=== PATIENT | female | born 1960 | race Caucasian/White ===

== ENCOUNTER 2023-02-18 05:23 | Inpatient (IN) | payer OTHER ==
[2023-02-18] MEDS ORDERED: HEPARIN SODIUM 1,000 UN/ML (10ML VL) IV ONE (06:06)
[2023-02-18] MEDS ORDERED: HEPARIN SODIUM 1,000 UN/ML (10ML VL) IV PRN (06:06)
[2023-02-18] MEDS ORDERED: HEPARIN SOD,PORK IN 0.45% NACL 25,000 UNIT in 0.45% NACL 1 250ML.BAG IV SCH (06:15)
--- NOTE | 2023-02-18 06:21 | ED ---
Chest Pain HPI - General Chief Complaint: Chest Pain Stated Complaint: N-Stemi Time Seen by Provider: 02/18/23 05:55 Source: patient, EMS, RN notes reviewed Mode of arrival: EMS Limitations: no limitations - History of Present Illness Initial Comments: This is a 62-year-old female who presents to the emergency department as a transfer from [facility] for an N-STEMI. She had centralized chest pressure, mild nausea, and shortness of breath beginning at about 8pm last evening, and went to the emergency department about 2 hours later. She had some radiation of pain into the back and no radiation of pain down the arm. She went to their emergency department about 3 weeks prior for similar symptoms, and was found to have a negative workup at that time. She has seen cardiology in the past, and states that she had a cardiac catheterization about 10 years ago and was told that everything was normal. She also had a chemical stress test about 4 years ago, which she states was also normal. She has a history of high blood pressure and is a smoker. However, she denies any personal cardiac history. She does have a substantial family cardiac history, states that her brother has 6 stents, some of which were placed before the age of 50, she has another brother with an aortic aneurysm, and her father had a triple bypass at the age of 48. She is currently on a Heparin drip and has nitropaste applied, and symptoms are well controlled at this time. MD Complaint: chest pain - Related Data Home Medications Medication Instructions Recorded Confirmed Cholecalciferol [Vitamin D3 (25 50 mcg PO DAILY 02/18/23 02/18/23 Mcg = 1000 Iu)] Cyanocobalamin (Vitamin B-12) 1,000 mcg PO DAILY 02/18/23 02/18/23 [Vitamin B-12] Fexofenadine HCl 180 mg PO DAILY 02/18/23 02/18/23 Lexapro (Unknown Strength) 1 dose PO DAILY 02/18/23 02/18/23 Multivitamins, Thera [Multivitamin 1 tab PO DAILY 02/18/23 02/18/23 (formulary)] Pantoprazole [Protonix] 40 mg PO DAILY 02/18/23 02/18/23 Wellbutrin (Unknown Strength) 1 dose PO BID 02/18/23 02/18/23 lisinopriL [Prinivil] 20 mg PO DAILY 02/18/23 02/18/23 Allergies Allergy/AdvReac Type Severity Reaction Status Date / Time Sulfa (Sulfonamide Allergy Rash/Hives Verified 02/18/23 12:39 Antibiotics) Review of Systems ROS Statement: Those systems with pertinent positive or pertinent negative responses have been documented in the HPI. ROS Other: All systems not noted in ROS Statement are negative. Past Medical History - Past Family History Mother Family Medical History: No Reported History Father Family Medical History: Coronary Artery Disease (CAD) Additional Family Medical History / Comment(s): triple bypass, esophageal cancer General Exam Limitations: no limitations General appearance: alert, in no apparent distress Head exam: Present: atraumatic, normocephalic, normal inspection Respiratory exam: Present: normal lung sounds bilaterally. Absent: respiratory distress, wheezes, rales, rhonchi, stridor Cardiovascular Exam: Present: regular rate, normal rhythm, normal heart sounds. Absent: systolic murmur, diastolic murmur, rubs, gallop, clicks Neurological exam: Present: alert, oriented X3, CN II-XII intact Psychiatric exam: Present: normal affect, normal mood Skin exam: Present: warm, dry, intact, normal color. Absent: rash Course Vital Signs 02/18/23 02/18/23 05:50 07:29 Temperature 97.7 F Pulse Rate 56 L 57 L Respiratory 18 18 Rate Blood Pressure 137/69 121/57 O2 Sat by Pulse 95 95 Oximetry Chest Pain MDM - MDM This is a 62-year-old female who presents to the emergency department for chest pain and a transfer for NSTEMI. Was pt. sent in by a medical professional or institution? @ -Transfer from [place] Did you speak to anyone other than the patient for history? @ -No Did you review nursing and triage notes? @ -Yes, and I agree, it is accurate with regards to the patient's symptoms. Were old charts reviewed? @ -Records sent with the patient from [place] demonstrating T-wave inversions in leads V1-V3 on her EKG. Her chest x-ray and blood work were all normal initially and symptoms had improved wtih Toradol, morphine, aspirin, and zofran. However, they did repeat a second troponin, which returned elevated at 0.16, and she was transferred here for NSTEMI. She was started on a heparin drip and nitropaste was applied before transfer. Differential Diagnosis? @ -Differential Chest Pain: Stable Angina, Unstable Angina, STEMI, NSTEMI Aortic Dissection, Pneumothorax, Musculoskeletal, Esophageal Spasm GERD, Cholecystitis, Pancreatitis, Zoster, this is not meant to be an all-inclusive list. EKG interpreted by me (3pts min.)? @ -EKG interpreted by me demonstrating the following: Sinus bradycardia. T- wave inversion in V1 and V2. Ventricular rate 51 bpm, CO interval 196 ms, QRS duration 130 milliseconds, QTC 441 ms. X-rays interpreted by me (1pt min.)? @ -Not obtained CT interpreted by me (1pt min.)? @ -Not obtained U/S interpreted by me (1pt. min.)? @ -Not obtained What testing was considered but not performed? (CT, X-rays, U/S, labs)? Why? @ -None What meds were considered but not given? Why? @ -None Did you discuss the management of the patient with other professionals? @ -Yes, Dr. Vela, who accepts the patient for admission. Did you reconcile home meds? @ -No Was smoking cessation discussed for >3mins.? @ -I discussed smoking cessation for greater than 3 minutes. The risk of smoking were discussed with the patient including but not limited to risks of cancer, stroke, coronary artery disease and COPD. Also discussed with patient were multiple methods of quitting smoking. Lastly we discussed the financial cost of smoking. Was critical care preformed (if so, how long)? @ -No Were there social determinants of health that impacted care today? How? (Homelessness, low income, unemployed, alcoholism, drug addiction, transportation, low edu. Level, literacy, decrease access to med. care, fdc, rehab)? @ -No Was there de-escalation of care discussed even if they declined? (Discuss DNR or withdrawal of care, Hospice)? @ -No What co-morbidities impacted this encounter? (DM, HTN, Smoking, COPD, CAD, Cancer, CVA, Hep., AIDS, mental health diagnosis, sleep apnea, morbid obesity)? @ -HTN, smoking Was patient admitted / discharged? @ -Admitted. Records sent with the patient from [place] were thoroughly reviewed, indicating a negative first troponin and elevated second troponin of 0.16, and she was transferred here for NSTEMI. Patient continued on heparin drip. Patient admitted to medicine for NSTEMI with cardiology consult. However, we did repeat lab work here, and troponin returned after admission and was found to be negative. Patient will still be admitted for further evaluation and cardiac consult given her symptoms and risk factors. Undiagnosed new problem with uncertain prognosis? @ -None Drug Therapy requiring intensive monitoring for toxicity (Heparin, Nitro, Insulin, Cardizem)? @ -None Were any procedures done? @ -None Diagnosis/symptom? @ -Chest pain Acute, or Chronic, or Acute on Chronic? @ -Acute Uncomplicated (without systemic symptoms) or Complicated (systemic symptoms)? @ -Complicated Side effects of treatment? @ -None Exacerbation, Progression, or Severe Exacerbation] @ -Not applicable Poses a threat to life or bodily function? @ -Yes This case was discussed in detail with the attending ED physician, Dr. Reed. Presentation, findings, and treatment plan discussed in detail as well. Disposition Clinical Impression: Nicotine dependence, Chest pain Disposition: ADMITTED IP TO THIS HOSP
[2023-02-18] MEDS ORDERED: NALOXONE 0.4 MG/ML 1 ML VIAL IV PRN (06:35)
[2023-02-18 06:36] LABS: Basophils % (A) 0 %; Eosinophils # (A) 0.2 k/uL (0-0.7); Eosinophils % (A) 2 %; HCT 42.5 % (34.0-46.0); HGB 14.5 gm/dL (11.4-16.0); Lymphocytes # (A) 2.3 k/uL (1.0-4.8); Lymphocytes % (A) 29 %; MCH 31.1 pg (25.0-35.0); MCHC 34.2 g/dL (31.0-37.0); Mean Platelet Volume 7.8; Monocytes # (A) 0.3 k/uL (0-1.0); Monocytes % (A) 4 %; Neutrophils # (A) 4.8 k/uL (1.3-7.7); Neutrophils % (A) 62 %; Platelet Count 202 k/uL (150-450); RBC 4.67 m/uL (3.80-5.40); RDW 13.4 % (11.5-15.5); WBC 7.8 k/uL (3.8-10.6)
[2023-02-18 06:44] LABS: Sodium 136 mmol/L (137-145)
[2023-02-18 06:45] LABS: ALT 12 U/L (4-34); AST 18 U/L (14-36); African American GFR (CKD) 85 (>60 ml/min/1.73 sqM); Albumin 3.9 g/dL (3.5-5.0); Alkaline Phosphatase 77 U/L (38-126); Anion Gap 8 mmol/L; Blood Urea Nitrogen 17 mg/dL (7-17); Carbon Dioxide 24 mmol/L (22-30); Chloride 104 mmol/L (98-107); Glucose 95 mg/dL (74-99); Magnesium 1.9 mg/dL (1.6-2.3); Non-African American GFR(CKD) 74 (>60 ml/min/1.73 sqM); Potassium 4.1 mmol/L (3.5-5.1); Total Bilirubin 0.5 mg/dL (0.2-1.3); Total Protein 6.6 g/dL (6.3-8.2)
[2023-02-18 07:15] LABS: Prothrombin Time 10.7 sec (10.0-12.5)
[2023-02-18 07:22] LABS: Partial Thromboplastin Time 117.1 sec (22.0-30.0)
--- NOTE | 2023-02-18 13:23 | P.CRDCN ---
History of Present Illness Consult date: 02/18/23 History of present illness: History of Present Illness: The patient is a 62-year-old female with a history of hypertension, chronic tobacco use who presented to [facility] with an episode of chest discomfort and she was subsequently transferred. She was scheduled to undergo a nuclear scan tomorrow and [place] and see a wheel borer. The discomfort occurred at rest, not associated with any radiation or other symptoms. The patient has underwent cardiac catheterization about 4 years ago that showed no evidence of obstructive disease according to her. Her cardiac catheterization was performed in [place] prior to gastric bypass and because of symptoms of dis comfort. In [place] her second troponin was minimally abnormal but it was normal upon arrival here. The patient is not very active physically, she has some dyspnea on exertion, wheezing, cough but no PND, orthopnea or peripheral edema. Medications: Wellbutrin, Lexapro, Prinivil Review of Systems: Respiratory: She has dyspnea on exertion, chronic tobacco use and chronic wheezing GI: No nausea or vomiting . No history of peptic ulcer disease. No recent GI bleed. She has a history of GERD : No hematuria or dysuria. Nervous System: No stroke or seizure. Physical Examination: 62-year-old female, alert and oriented no apparent distress, overweight ,Blood pressure 103/60, Heart rate 60 Head: Normocephalic. Eyes: Sclerae nonicteric. Neck: Good carotid upstroke, no bruit, no jugular venous distention. Lungs: Clear to auscultation. Heart: Regular rate and rhythm, S1-S2, no S3, no rub. No murmur. Abdomen: Soft nontender, positive bowel sounds no organomegaly. Extremities: No edema, intact distal pulses. Labs: Potassium 4.1, BUN 17 creatinine 0.84. Hemoglobin 14.5, troponin less than 0.012. EKG: Sinus mechanism, rate of 51 right bundle branch block and left axis deviation was left anterior fascicle block Impression: 1. Chest discomfort of unclear etiology, probable noncardiac 2. History of hypertension 3. History of chronic tobacco use 4. History of reflux Plan: 1. Stop IV heparin 2. Obtain an echocardiogram with Doppler 3. Proceed with a nuclear scan tomorrow 4. If there is any evidence of stress-induced ischemia then coronary angiography will be indicated 5. Thank you for this consult we will follow with you. Past Medical History Past Medical History: Hypertension History of Any Multi-Drug Resistant Organisms: None Reported Past Surgical History: Bariatric Surgery, Section, Orthopedic Surgery, Tonsillectomy Additional Past Surgical History / Comment(s): lump removed from neck Past Anesthesia/Blood Transfusion Reactions: No Reported Reaction Past Psychological History: Depression Smoking Status: Current every day smoker - Past Family History Mother Family Medical History: No Reported History Father Family Medical History: Coronary Artery Disease (CAD) Additional Family Medical History / Comment(s): triple bypass, esophageal cancer Medications and Allergies Home Medications Medication Instructions Recorded Confirmed Type Cholecalciferol [Vitamin D3 (25 50 mcg PO DAILY 02/18/23 02/18/23 History Mcg = 1000 Iu)] Cyanocobalamin (Vitamin B-12) 1,000 mcg PO DAILY 02/18/23 02/18/23 History [Vitamin B-12] Fexofenadine HCl 180 mg PO DAILY 02/18/23 02/18/23 History Lexapro (Unknown Strength) 1 dose PO DAILY 02/18/23 02/18/23 History Multivitamins, Thera [Multivitamin 1 tab PO DAILY 02/18/23 02/18/23 History (formulary)] Pantoprazole [Protonix] 40 mg PO DAILY 02/18/23 02/18/23 History Wellbutrin (Unknown Strength) 1 dose PO BID 02/18/23 02/18/23 History lisinopriL [Prinivil] 20 mg PO DAILY 02/18/23 02/18/23 History Allergies Allergy/AdvReac Type Severity Reaction Status Date / Time Sulfa (Sulfonamide Allergy Rash/Hives Verified 02/18/23 12:39 Antibiotics) Physical Exam Vitals: Vital Signs Temp Pulse Pulse Resp BP BP Pulse Ox 02/18/23 12:08 98.1 F 56 L 16 103/64 94 L 02/18/23 09:18 97.6 F 56 L 16 120/57 97 02/18/23 08:00 16 02/18/23 07:29 57 L 18 121/57 95 02/18/23 05:50 97.7 F 56 L 18 137/69 95 Intake and Output 02/17/23 02/18/23 02/18/23 22:59 06:59 14:59 Intake Total 0.5 Balance 0.5 Intake: Intake, IV Titration 0.5 Amount Heparin Sod,Pork in 0.45% 0.5 NaCl 25,000 unit In 0.45 % NaCl 1 250ml.bag @ 9.15 UNITS/KG/HR 10.001 mls/ hr IV .Q24H [facility] Rx#: [id number] Other: Voiding Method Toilet Weight 109.316 kg 109.316 kg Results 02/18/23 06:26 02/18/23 06:26 Cardiac Enzymes 02/18/23 02/18/23 Range/Units 06:26 06:26 AST 18 (14-36) U/L Troponin I <0.012 (0.000-0.034) ng/mL Coagulation 02/18/23 02/18/23 Range/Units 06:26 09:11 PT 10.7 (10.0-12.5) sec APTT 117.1 H* 54.6 H (22.0-30.0) sec CBC 02/18/23 Range/Units 06:26 WBC 7.8 (3.8-10.6) k/uL RBC 4.67 (3.80-5.40) m/uL Hgb 14.5 (11.4-16.0) gm/dL Hct 42.5 (34.0-46.0) % Plt Count 202 (150-450) k/uL Comprehensive Metabolic Panel 02/18/23 Range/Units 06:26 Sodium 136 L (137-145) mmol/L Potassium 4.1 (3.5-5.1) mmol/L Chloride 104 (98-107) mmol/L Carbon Dioxide 24 (22-30) mmol/L BUN 17 (7-17) mg/dL Creatinine 0.84 (0.52-1.04) mg/dL Glucose 95 (74-99) mg/dL Calcium 9.0 (8.4-10.2) mg/dL AST 18 (14-36) U/L ALT 12 (4-34) U/L Alkaline Phosphatase 77 (38-126) U/L Total Protein 6.6 (6.3-8.2) g/dL Albumin 3.9 (3.5-5.0) g/dL Current Medications Generic Name Dose Route Start Last Admin Trade Name Freq PRN Reason Stop Dose Admin Acetaminophen 650 mg 02/18/23 06:35 Acetaminophen Tab 325 Mg Tab PO Q6HR PRN Mild Pain or Fever > 100.5 Hydrocodone Bitart/Acetaminophen 1 each 02/18/23 06:35 Hydrocodone/Apap 5-325mg 1 Each Tab PO Q4HR PRN Moderate Pain (Scale 4 to 6) Morphine Sulfate 4 mg 02/18/23 06:35 Morphine Sulfate 4 Mg/Ml Syringe IV Q4HR PRN Severe Pain (Scale 7 to 10) Naloxone HCl 0.2 mg 02/18/23 06:35 Naloxone 0.4 Mg/Ml 1 Ml Vial IV Q2M PRN Opioid Reversal Ondansetron HCl 4 mg 02/18/23 06:35 Ondansetron 4 Mg/2 Ml Vial IVP Q8HR PRN Nausea And Vomiting Intake and Output 02/17/23 02/18/23 02/18/23 22:59 06:59 14:59 Intake Total 0.5 Balance 0.5 Intake: Intake, IV Titration 0.5 Amount Heparin Sod,Pork in 0.45% 0.5 NaCl 25,000 unit In 0.45 % NaCl 1 250ml.bag @ 9.15 UNITS/KG/HR 10.001 mls/ hr IV .Q24H [facility] Rx#: [id number] Other: Voiding Method Toilet Weight 109.316 kg 109.316 kg Patient Weight 02/19/23 06:59 Weight 109.316 kg 02/18/23 06:26 02/18/23 06:26
--- NOTE | 2023-02-18 13:52 | P.HPIM ---
History of Present Illness H&P Date: 02/18/23 Patient is a 62-year-old female with history of nicotine dependence, hypertension, depression, GERD presenting with chest pain. Chest pain started yesterday evening, left-sided while she was resting. It lasted for a few hours. Associated with nausea and shortness of breath. Denies any palpitations. Had similar chest pain in the past, cardiac cath 10 years ago was negative, stress test years ago was also negative. She was at outside facility, initial troponin was negative, and that had slight elevation in troponin, was started on heparin drip and transferred over to our facility. Currently she is chest pain-free, denies any shortness of breath, abdominal pain, nausea, vomiting, urinary or bowel complaints. Patient smokes half pack a day. Denies any alcohol use, uses marijuana occasionally. In the ED, temperature was 97.7, pulse 56, respiratory rate 18, blood pressure 137/69, saturating at 95% on room air. CBC and BMP within normal limits. Troponin negative. APTT 54.6. EKG shows normal sinus rhythm with right bundle branch block, poor R-wave progression. Chest x-ray outside did not show any acute process. Cardiology consulted. Patient admitted for possible NSTEMI. Pertinent positives and negatives as discussed in HPI, a complete review of systems was performed and all other systems are negative. Patient seen and examined at bedside. Vital signs reviewed General: nontoxic, no distress, appears at stated age, morbidly obese Derm: warm, dry Head: atraumatic, normocephalic, symmetric Eyes: EOMI, no lid lag, anicteric sclera, pupils equal round reactive to light ENT: Nose and ears atraumatic Neck: No thyromegaly, supple Mouth: no lip lesion, mucus membranes moist Cardiovascular: S1S2 reg, no murmur, no edema Lungs: clear to auscultation bilateral, no rhonchi, no rales, no wheeze, no accessory muscle use Abdominal: soft, nontender to palpation, no guarding, no appreciable organomegaly Ext: no gross muscle atrophy, muscle strength muscle strength 5 out of 5 in all 4 extremities, no contractures Neuro: CN II-XII grossly intact Psych: Alert, oriented, appropriate affect Assessment/Plan: NSTEMI -Cardiology consulted -On IV heparin, monitor APTT, daily CBC, monitor for any bleeding -Aspirin 81 mg -Lipid panel, TSH, A1c -Consider statin -Continue telemetry Hypertension -Restarted home lisinopril 20 mg Nicotine dependence -Counseled regarding smoking cessation -Continue Wellbutrin Depression -Continue Lexapro GERD -Continue pantoprazole 40 mg The patient is admitted with an anticipated greater than 2 midnight stay as inpatient status for evaluation of NSTEMI. Surrogate decision-maker: Family CODE STATUS: Full code DVT prophylaxis: Heparin Anticipated discharge date: Pending clinical course Anticipated discharge place: Pending clinical course A total of 55inutes was spent on the care of this complex patient more than 50% of the time was spent in counseling and care coordination. Past Medical History Past Medical History: Hypertension History of Any Multi-Drug Resistant Organisms: None Reported Past Surgical History: Bariatric Surgery, Section, Orthopedic Surgery, Tonsillectomy Additional Past Surgical History / Comment(s): lump removed from neck Past Anesthesia/Blood Transfusion Reactions: No Reported Reaction Past Psychological History: Depression Smoking Status: Current every day smoker - Past Family History Mother Family Medical History: No Reported History Father Family Medical History: Coronary Artery Disease (CAD) Additional Family Medical History / Comment(s): triple bypass, esophageal cancer Medications and Allergies Home Medications Medication Instructions Recorded Confirmed Type Cholecalciferol [Vitamin D3 (25 50 mcg PO DAILY 02/18/23 02/18/23 History Mcg = 1000 Iu)] Cyanocobalamin (Vitamin B-12) 1,000 mcg PO DAILY 02/18/23 02/18/23 History [Vitamin B-12] Fexofenadine HCl 180 mg PO DAILY 02/18/23 02/18/23 History Lexapro (Unknown Strength) 1 dose PO DAILY 02/18/23 02/18/23 History Multivitamins, Thera [Multivitamin 1 tab PO DAILY 02/18/23 02/18/23 History (formulary)] Pantoprazole [Protonix] 40 mg PO DAILY 02/18/23 02/18/23 History Wellbutrin (Unknown Strength) 1 dose PO BID 02/18/23 02/18/23 History lisinopriL [Prinivil] 20 mg PO DAILY 02/18/23 02/18/23 History Allergies Allergy/AdvReac Type Severity Reaction Status Date / Time Sulfa (Sulfonamide Allergy Rash/Hives Verified 02/18/23 12:39 Antibiotics) Physical Exam Vitals: Vital Signs Temp Pulse Pulse Resp BP BP Pulse Ox 02/18/23 12:08 98.1 F 56 L 16 103/64 94 L 02/18/23 09:18 97.6 F 56 L 16 120/57 97 02/18/23 08:00 16 02/18/23 07:29 57 L 18 121/57 95 02/18/23 05:50 97.7 F 56 L 18 137/69 95 Intake and Output 02/17/23 02/18/23 02/18/23 22:59 06:59 14:59 Intake Total 0.5 Balance 0.5 Intake: Intake, IV Titration 0.5 Amount Heparin Sod,Pork in 0.45% 0.5 NaCl 25,000 unit In 0.45 % NaCl 1 250ml.bag @ 9.15 UNITS/KG/HR 10.001 mls/ hr IV .Q24H [facility] Rx#: [id number] Other: Voiding Method Toilet Weight 109.316 kg 109.316 kg Results CBC & Chem 7: 02/18/23 06:26 02/18/23 06:26 Labs: Abnormal Lab Results - Last 24 Hours (Table) 02/18/23 02/18/23 02/18/23 Range/Units 06:26 06:26 09:11 APTT 117.1 H* 54.6 H (22.0-30.0) sec Sodium 136 L (137-145) mmol/L Thrombosis Risk Factor Assmnt - Choose All That Apply Each Factor Represents 1 point: Obesity (BMI >25) Each Risk Factor Represents 2 Points: Age 61-74 years Thrombosis Risk Factor Assessment Total Risk Factor Score: 3 Thrombosis Risk Factor Assessment Level: Moderate Risk
[2023-02-18] MEDS: ASPIRIN 81 MG PO SCH (15:35)
[2023-02-18] MEDS: HEPARIN SODIUM,PORCINE 5,000 UNIT/ML 1 ML VIAL SQ SCH (15:35)
[2023-02-18] MEDS: ACETAMINOPHEN TAB 325 MG TAB PO PRN (17:59)
[2023-02-18] MEDS ORDERED: WELLBUTRIN PO SCH (21:00)
[2023-02-18] MEDS: MORPHINE SULFATE 4 MG/ML SYRINGE IV PRN (23:36)
[2023-02-19 00:21] LABS: Chol/HDL Ratio 3.56 Ratio; LDL Cholesterol,Calculated 127.9 mg/dL (0.0-131.0)
[2023-02-19] MEDS: HEPARIN SODIUM,PORCINE 5,000 UNIT/ML 1 ML VIAL SQ SCH ×3 (01:17→16:54)
[2023-02-19] MEDS ORDERED: AMINOPHYLLINE 500 MG/20 ML VIAL IV PRN (06:00)
[2023-02-19] MEDS ORDERED: CAFFEINE CITRATE 60 MG/3 ML VIAL IV PRN (06:00)
[2023-02-19] MEDS: PANTOPRAZOLE 40 MG TABLET PO SCH (06:47)
[2023-02-19] MEDS ORDERED: REGADENOSON 0.4 MG/5 ML SYRINGE IV PRN (07:00)
[2023-02-19 07:33] LABS: Basophils % (A) 1 %; Eosinophils # (A) 0.3 k/uL (0-0.7); Eosinophils % (A) 5 %; HCT 42.8 % (34.0-46.0); HGB 14.3 gm/dL (11.4-16.0); Lymphocytes # (A) 1.8 k/uL (1.0-4.8); Lymphocytes % (A) 36 %; MCHC 33.3 g/dL (31.0-37.0); MCV 93.2 fL (80.0-100.0); Mean Platelet Volume 8.3; Monocytes # (A) 0.3 k/uL (0-1.0); Monocytes % (A) 6 %; Neutrophils # (A) 2.5 k/uL (1.3-7.7); Neutrophils % (A) 49 %; Platelet Count 182 k/uL (150-450); RDW 13.9 % (11.5-15.5); WBC 5.1 k/uL (3.8-10.6)
[2023-02-19 07:47] LABS: African American GFR (CKD) 71 (>60 ml/min/1.73 sqM); Anion Gap 8 mmol/L; Blood Urea Nitrogen 16 mg/dL (7-17); Calcium 9.3 mg/dL (8.4-10.2); Carbon Dioxide 29 mmol/L (22-30); Chloride 103 mmol/L (98-107); Glucose 88 mg/dL (74-99); Non-African American GFR(CKD) 61 (>60 ml/min/1.73 sqM); Potassium 4.8 mmol/L (3.5-5.1); Sodium 140 mmol/L (137-145)
[2023-02-19] MEDS ORDERED: LEXAPRO PO SCH (09:00)
[2023-02-19] MEDS: LIDOCAINE 4% PATCH TOPICAL SCH (11:30)
--- NOTE | 2023-02-19 12:32 | NM ---
EXAMINATION TYPE: NM stress lexiscan cardiolite DATE OF EXAM: 02/19/2023 COMPARISON: NONE CLINICAL INDICATION: Female, 62 years old with history of chest pain; TECHNIQUE: After the intravenous administration of 10.5 mCi Tc 99m Sestamibi - Cardiolite resting SP ECT images acquired 75 minutes post injection. The patient received 0.4mg Lexiscan, 26.4 mCi Tc 99m Sestamibi - Stress images obtained [address] injection FINDINGS: Review of stress and rest SPECT images demonstrates a large area of reversibility along the inferolat eral wall. Perfusion defect along the septal and anteroseptal wall is much more pronounced on rest conley ggesting attenuation artifact. Gated analysis shows incomplete augmentation of the inferolateral wall . Estimated left ventricular ejection fraction of 73 %. TID is calculated normal at 0.89. IMPRESSION: Scintigraphic findings demonstrating a large area of reversibility along the inferolatera l wall. Correlate with EKG findings and further workup as clinically indicated.
[2023-02-19] MEDS: lisinopriL 20 MG TAB PO SCH (12:48)
[2023-02-19] MEDS: ASPIRIN 81 MG PO SCH (12:48)
--- NOTE | 2023-02-19 13:33 | CA ---
Lexiscan Nuclear Stress Test Report Name: Nancy Soto Exam Date: 02/19/2023 09:34 Exam Location: [facility] Stress Ht (in): 67 Wt (lb): 240 BSA: 2.18 Ordering Phys: Danilo Jaquez MD Referring Phys: MENDEL, Technologist: PADMINI,, Age: 62 Gender: F : 1960 Procedure CPT: Indications: Reflex order-Stress test ICD-10 Codes: Patient History: Chest pain. Shortness of breath Medications: Meds past 24 hrs: Pretest Chest Pain: STRESS TEST Lexiscan Protocol Exercise Duration (min:sec): 02:[address] Depressions (mm): Angina Score: Agee Score: Resting HR (bpm): 55 Peak HR (bpm): 113 Resting BP (mmHg): 142 / 72 Peak BP (mmHg): 229 / 102 MPHR: 156 Target HR: 133 % MPHR: 72 METS: 1.0 Total Dose: Peak Dose: Atropine: Double Product: 62931 BP Response: Stress Termination: Infusion complete Stress Symptoms: Nausea Stress Summary: ECG ANALYSIS Resting ECG: Normal sinus rhythm, right bundle branch block, heart rate 54, premature ventricular contraction Stress ECG: No significant ST-T wave changes diagnostic for ischemia by ST segment analysis. There were no sustained arrhythmias ectopic beats CONCLUSIONS Nonischemic ECG response to Lexiscan infusion Hypertensive response to Lexiscan infusion Overall normal ECG competent of Lexiscan stress test. Please refer to the nuclear portion of imaging for the complete interpretation of this study Dr Amador Solitario (Electronically Signed) Final Date: 19 February 2023 13:32
--- NOTE | 2023-02-19 13:36 | CA ---
Transthoracic Echo Report Name: Nancy Soto Age: 62 Gender: F : 1960 Exam Date: 02/19/2023 09:13 Exam Location: [facility] Ht (in): 67 Wt (lb): 240 Ordering Physician: Danilo Jaquez MD ([id number]) Attending/Referring Phys: Census Taker Negin Lee RDCS Procedure CPT: Indications: CP Cardiac Hx: Technical Quality: Fair Contrast 1: Total Dose (mL): Contrast 2: Total Dose (mL): MEASUREMENTS (Male / Female) Normal Values 2D ECHO LV Diastolic Diameter PLAX 4.0 cm 4.2 - 5.9 / 3.9 - 5.3 cm LV Systolic Diameter PLAX 2.2 cm IVS Diastolic Thickness 1.5 cm 0.6 - 1.0 / 0.6 - 0.9 cm LVPW Diastolic Thickness 1.4 cm 0.6 - 1.0 / 0.6 - 0.9 cm LV Relative Wall Thickness 0.7 RV Internal Dim ED PLAX 3.4 cm LA Volume 62.2 cm??? 18 - 58 / 22 - 52 cm??? LA Volume Index 26.9 cm???/m??? 16 - 28 cm???/m??? M-MODE Aortic Root Diameter MM 3.2 cm LA Systolic Diameter MM 5.1 cm LA Ao Ratio MM 1.6 AV Cusp Separation MM 1.8 cm DOPPLER AV Peak Velocity 146.8 cm/s AV Peak Gradient 8.6 mmHg AV Mean Velocity 97.5 cm/s AV Mean Gradient 4.3 mmHg AV Velocity Time Integral 33.8 cm LVOT Peak Velocity 118.7 cm/s LVOT Peak Gradient 5.6 mmHg LVOT Velocity Time Integral 28.6 cm MV Area PHT 2.9 cm??? Mitral E Point Velocity 90.9 cm/s Mitral A Point Velocity 116.5 cm/s Mitral E to A Ratio 0.8 MV Deceleration Time 259.5 ms MV E' Velocity 7.3 cm/s Mitral E to MV E' Ratio 12.4 TR Peak Velocity 189.1 cm/s TR Peak Gradient 14.3 mmHg Right Ventricular Systolic Press 19.3 mmHg FINDINGS Left Ventricle Moderately increased left ventricular wall thickness. Left ventricular cavity size normal. Normal left ventricular systolic function with no obvious regional wall motion abnormalities. Left ventricular ejection fraction is estimated at 55-60%. Right Ventricle Normal right ventricular size. Right ventricular systolic pressure within normal limits. Right Atrium Normal right atrial size. Left Atrium Mildly increased left atrial volume. Mildly increased left atrial area. Mitral Valve Structurally normal mitral valve. Mild mitral annular calcification. Trace mitral regurgitation. Aortic Valve Trileaflet aortic valve. No aortic valve stenosis or regurgitation. Aortic valve sclerosis. Tricuspid Valve Structurally normal tricuspid valve. Mild tricuspid regurgitation. Pulmonic Valve Structurally normal pulmonic valve. Pericardium No pericardial effusion. Aorta Normal size aortic root and proximal ascending aorta. CONCLUSIONS Left ventricular ejection fraction is estimated at 55-60%. No obvious regional wall motion abnormalities. Aortic valve sclerosis with no stenosis No other significant valvular dysfunction RVSP estimated less than 25 mmHg No pericardial effusion Previewed by: Dr Amador Solitario (Electronically Signed) Final Date: 19 February 2023 13:35
[2023-02-19] MEDS ORDERED: NITROGLYCERIN SL TABS 0.4 MG TAB SUBLINGUAL PRN (13:59)
[2023-02-19] MEDS ORDERED: ALPRAZolam 0.5 MG TAB PO PRN (13:59)
[2023-02-19] MEDS ORDERED: ALPRAZolam 0.25 MG TAB PO PRN (13:59)
--- NOTE | 2023-02-19 14:16 | P.PN ---
Subjective HISTORY OF PRESENT ILLNESS: The patient is a 62-year-old female with a history of hypertension, chronic tobacco use who presented to [facility] with an episode of chest discomfort and she was subsequently transferred. 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 The discomfort occurred at rest, not associated with any radiation or other symptoms. The patient has underwent cardiac catheterization about 4 years ago that showed no evidence of obstructive disease according to her. Her cardiac catheterization was performed in [place] prior to gastric bypass and because of symptoms of discomfort. In [place] her second troponin was minimally abnormal but it was normal upon arrival here. The patient is not very active physically, she has some dyspnea on exertion, wheezing, cough but no PND, orthopnea or peripheral edema. Medications: Wellbutrin, Lexapro, Prinivil 02/19/2023 Patient examined this morning at the bedside. Patient currently denies chest pain or pressure. She denies shortness of breath. Vital signs are stable. Lexiscan stress test completed today reveals large area of reversibility along inferior lateral wall. Echocardiogram completed revealing ejection fraction 55- 60% with no obvious regional wall motion abnormalities, trace MR, mild TR. PHYSICAL EXAM: VITAL SIGNS: Reviewed. GENERAL: Well-developed in no acute distress. NECK: Supple. No JVD or thyromegaly LUNGS: Respirations even and unlabored. Lungs essentially clear to auscultation bilaterally. HEART: Regular rate and rhythm. S1 and S2 heard. EXTREMITIES: Normal range of motion. No clubbing or cyanosis. Peripheral pulses intact. No lower extremity edema ASSESSMENT: 1. Chest discomfort, status post Lexiscan stress test revealing large area of reversibility along inferior lateral wall 2. History of hypertension 3. History of chronic tobacco use 4. History of reflux PLAN: Continue current cardiac medications Add atorvastatin 40 mg at night Nothing by mouth at midnight Patient to undergo cardiac catheterization tomorrow with Dr. Jaquez Further recommendations pending patient's course Nurse practitioner note has been reviewed by physician. Signing provider agrees with the documented findings, assessment, and plan of care. Objective - Vital Signs Vital signs: Vital Signs Temp 97.2 F L 02/19/23 04:22 Pulse 56 L 02/19/23 04:22 Resp 16 02/19/23 04:22 BP 131/61 02/19/23 04:22 Pulse Ox 96 02/19/23 04:22 FiO2 Intake & Output 02/18/23 02/19/23 02/19/23 18:59 06:59 18:59 Intake Total 720.5 Balance 720.5 Weight 109.316 kg Intake: Intake, IV Titration 0.5 Amount Heparin Sod,Pork in 0.45% 0.5 NaCl 25,000 unit In 0.45 % NaCl 1 250ml.bag @ 9.15 UNITS/KG/HR 10.001 mls/ hr IV .Q24H [facility] Rx#: [id number] Oral 720 Other: Voiding Method Toilet Toilet # Voids 3 1 - Labs CBC & Chem 7: 02/19/23 07:11 02/19/23 07:11 Labs: Abnormal Lab Results - Last 24 Hours (Table) 02/18/23 02/18/23 Range/Units 06:26 09:11 APTT 54.6 H (22.0-30.0) sec Cholesterol 207.00 H (0.00-200.00) mg/dL
--- NOTE | 2023-02-19 16:20 | P.PN ---
Subjective Progress Note Date: 02/19/23 Hospital course: Patient is a very pleasant 62-year-old female with a past medical history of hypertension, anxiety and depression, GERD, and nicotine dependence. She presented to the emergency department on 02/18/23 secondary to complaints of chest pain. She was initially seen at [facility] and transferred to our facility for elevated troponin after being started on aspirin, Nitropaste, and a heparin infusion for treatment of NSTEMI. Upon arrival to facility, she underw ent full evaluation in the emergency department. Vital signs upon arrival temperature was 97.7F, heart rate 56, respiratory rate 18, blood pressure 137/69, with SpO2 of 95% on room air. Labs completed and reviewed. CBC and BMP unremarkable. Troponin negative at less than 0.012. PTT 54.6. EKG revealed sinus bradycardia at 51 bpm with a right bundle-branch block. Repeat EKG completed this morning revealing sinus bradycardia at 52 bpm with a right bundle branch block. Chest x-ray completed at previous facility was negative for acute cardiopulmonary process. Patient was admitted under our services of consultation cardiology. Lipid profile showing elevated total cholesterol 207 otherwise normal findings. Echocardiogram completed showing a preserved EF of 55-60%. Cardiology following and took patient for cardiac stress test. Stress test showing nonischemic EKG response to Lexiscan infusion, hypertensive response to Lexiscan infusion, and overall normal EKG component of Lexiscan stress test. Lexiscan stress test showing scintigraphic findings demonstrating a large area of reversibility along the inferiolateral wall Physical exam: Vital signs reviewed and stable. General: Nontoxic, no distress and appears stated age. Derm: Skin warm and dry, normal coloration for ethnicity. Head: Atraumatic, normocephalic and symmetric. Eyes: EOMs intact, no lid lag, and anicteric sclera Mouth: no lip lesions, mucus membranes moist Cardiovascular: regular rate and rhythm with normal S1S2, no murmur, positive posterior tibial pulses bilaterally, and cap refill < 2 seconds. Lungs: Respirations even, regular, and unlabored on room air. Lungs CTA bilaterally, no rhonchi, no rales, no wheezing, and no accessory muscle usage. Abdominal: soft, nontender to palpation, no guarding, no appreciable organomegaly Ext: ROM intact. No gross muscle atrophy, no edema, no contractures Neuro: Speech clear, face symmetrical and CN II-XII grossly intact with no noted focal neuro deficits Psych: Alert and oriented to person, place, time, and situation. Appropriate and pleasant affect. Assessment and Plan of Care: NSTEMI Hypertension Nicotine dependence GERD Anxiety and depression -Cardiology following and took patient for cardiac stress test today. -Telemetry monitoring -Continuation of low intensity heparin infusion. Most recent PTT 54.6 was therapeutic. Continue close monitoring of PTT prickle of therapeutic range of 44-79 seconds. -Cardiac diet -Continue Aspirin 81 mg daily and lisinopril 20 mg daily. -Lipid profile showing elevated total cholesterol 207 otherwise normal findings. -Echocardiogram completed showing a preserved EF of 55-60%. -Stress test showing nonischemic EKG response to Lexiscan infusion, hypertensive response to Lexiscan infusion, and overall normal EKG component of Lexiscan stress test. Lexiscan stress test showing scintigraphic findings demonstrating a large area of reversibility along the inferiolateral wall Data and imaging reviewed: -Vital signs reviewed. Blood pressure 137/76, heart rate 47, respiratory rate 20, temp 97.9F, SpO2 is 94% on room air. -Lipid profile showing elevated total cholesterol 207 otherwise normal findings. -Echocardiogram completed showing a preserved EF of 55-60%. -Stress test showing nonischemic EKG response to Lexiscan infusion, hypertensive response to Lexiscan infusion, and overall normal EKG component of Lexiscan stress test. -Lexiscan stress test showing scintigraphic findings demonstrating a large area of reversibility along the inferiolateral wall CODE STATUS: Full code DVT prophylaxis: Heparin Anticipated discharge date: Clinical course to determine Anticipated discharge place: Clinical course to determine Patient was seen independently by Nurse Pracitioner. This document was prepared using u[employer] dictation software. Please allow for errors in telephone sex worker, while rare they do occur. I reviewed the documentation as provided by the ANNIKA above, who is the original author of this note. I agree with the documented assessment and plan, with the following changes: none Objective - Vital Signs Vital signs: Vital Signs Temp 97.2 F L 02/19/23 04:22 Pulse 56 L 02/19/23 04:22 Resp 16 02/19/23 04:22 BP 131/61 02/19/23 04:22 Pulse Ox 96 02/19/23 04:22 FiO2 Intake & Output 02/18/23 02/19/23 02/19/23 18:59 06:59 18:59 Intake Total 720.5 Balance 720.5 Weight 109.316 kg Intake: Intake, IV Titration 0.5 Amount Heparin Sod,Pork in 0.45% 0.5 NaCl 25,000 unit In 0.45 % NaCl 1 250ml.bag @ 9.15 UNITS/KG/HR 10.001 mls/ hr IV .Q24H [facility] Rx#: [id number] Oral 720 Other: Voiding Method Toilet Toilet # Voids 3 1 - Labs CBC & Chem 7: 02/19/23 07:11 02/19/23 07:11 Labs: Abnormal Lab Results - Last 24 Hours (Table) 02/18/23 02/18/23 Range/Units 06:26 09:11 APTT 54.6 H (22.0-30.0) sec Cholesterol 207.00 H (0.00-200.00) mg/dL
[2023-02-19] MEDS: ATORVASTATIN 40 MG TAB PO SCH (22:00)
[2023-02-19] MEDS: HYDROcodone/APAP 5-325MG 1 EACH TAB PO PRN (22:00)
[2023-02-19] MEDS: SODIUM CHLORIDE 0.9% 1,000 ML in EMPTY BAG 1 BAG IV SCH (23:00)
[2023-02-20] MEDS: HEPARIN SODIUM,PORCINE 5,000 UNIT/ML 1 ML VIAL SQ SCH ×4 (00:25→23:44)
[2023-02-20] MEDS: ONDANSETRON 4 MG/2 ML VIAL IVP PRN ×2 (00:26→17:17)
[2023-02-20] MEDS: ASPIRIN 81 MG PO SCH (04:48)
[2023-02-20] MEDS ORDERED: ASPIRIN 325 MG TAB PO ONE (05:00)
[2023-02-20] MEDS ORDERED: ATORVASTATIN 80 MG TAB PO ONE (05:00)
[2023-02-20] MEDS: PANTOPRAZOLE 40 MG TABLET PO SCH (05:07)
[2023-02-20] MEDS: lisinopriL 20 MG TAB PO SCH (05:07)
[2023-02-20] MEDS: LIDOCAINE 4% PATCH TOPICAL SCH (05:08)
[2023-02-20] MEDS ORDERED: HEPARIN SODIUM,PORCINE (1 ML) 2,500 UNIT in SODIUM CHLORIDE 0.9% 250 ML IRRIGATION PRN (07:00)
[2023-02-20] MEDS ORDERED: HEPARIN SODIUM,PORCINE 10,000 UNIT in SODIUM CHLORIDE 0.9% 1,000 ML IRRIGATION PRN (07:00)
[2023-02-20] MEDS ORDERED: IV FLUID CONTINUATION 1,000 ML IV ONE (07:25)
[2023-02-20] MEDS ORDERED: MIDAZOLAM 2 MG/2 ML VIAL IVP ONE (07:49)
[2023-02-20] MEDS ORDERED: fentaNYL (PF) 50 MCG/ML 2 ML AMP IVP ONE (07:51)
[2023-02-20] MEDS ORDERED: LIDOCAINE 1% INJ 10MG/ML (20 ML MDV) SQ ONE (07:54)
[2023-02-20] MEDS ORDERED: VERAPAMIL SYRINGE (5 MG/10 ML) INTRAARTER ONE (07:56)
[2023-02-20] MEDS ORDERED: CLOPIDOGREL 75 MG TAB PO ONE (08:12)
[2023-02-20] MEDS ORDERED: IOPAMIDOL-370 100ML BTL INJ ONE ×2 (08:20→08:30)
[2023-02-20] MEDS ORDERED: SODIUM CHLORIDE 0.9% 1,000 ML IV ONE (08:39)
[2023-02-20] MEDS ORDERED: MAG HYDROX/AL HYDROX/SIMETH 30 ML CUP PO PRN (08:48)
[2023-02-20] MEDS ORDERED: ATROPINE SULFATE 0.1 MG/ML 10ML SYRINGE IV PRN (08:48)
[2023-02-20] MEDS ORDERED: NITROGLYCERIN SL TABS 0.4 MG TAB SUBLINGUAL PRN (08:48)
[2023-02-20] MEDS ORDERED: RX INFO: IV CONTRAST WAS GIVEN 1 EACH MISC MISCELLANE PRN (08:48)
[2023-02-20] MEDS ORDERED: ZOLPIDEM 5 MG TAB PO PRN (08:48)
--- NOTE | 2023-02-20 08:56 | P.CARDCATH ---
Date of Procedure: 02/20/23 Description of Procedure: Cardiac Catheterization: The patient is a 62-year-old female with history of chronic tobacco use, hypertension who presented with symptoms of chest discomfort and had an abnormal MPI. Recommendations were made regarding cardiac catheterization, the risks and the complications were discussed with the patient who is in full understanding and agreement. Procedure Description: Patient was brought to center medical and lab director in fasting semi-sedated state after receiving Fentanyl and Benadryl achieiving moderate conscious sedated state. Using Xylocaine Anesthesia and modified Seldinger technique, a 6-Hong Konger sheath was introduced in the right radial artery . Subsequently, selective coronary angiography was performed using a 5-Hong Konger 3.5 bend Nilay catheter. Multiple views of the coronary artery including hemiaxial views were obtained. The 6-H[place] Konger pigtail catheter was used to cross the aortic valve and LVEDP was calculated. PCI: After removing the catheters 6-H[place] Konger EBU 3.75 guiding catheter was introduced and after cannulating the left main a 0.014 BMW J-wire with a super cross c atheter were introduced in the left circumflex. Attempted has to wire across the chronic occlusion were unsuccessful, the wire was exchanged to a 0.014 whisper J-wire that was unsuccessful in crossing the lesion. Because of the dye load the decision was made to stop at that point. Following that, catheter and sheath were removed. Hemostasis was obtained with deployment of vascular band . There was no immediate complication. Patient was returned to room in stable condition. Of note, the patient received a total of 7000 units of intravenous heparin as well as intra-arterial verapamil. She received an oral loading dose of clopidogrel. She had no chest discomfort or EKG changes Findings: Left main: This is a large size vessel bifurcating into left circumflex and LAD, left main has no obstructive disease LAD: This is a moderately sized vessel, giving rise to a large diagonal branch. The LAD after the takeoff of the diagonal branch has a 30-40% plaque the rest of the vessel has no high-grade stenosis Left circumflex: This is a nondominant vessel giving rise to 2 obtuse marginal branch, the first one is very proximal. The second one is chronically occluded at the takeoff with retrograde filling through the LAD. RCA: This is an dominant vessel, large in caliber bifurcating distally into PDA and PLV. The proximal RCA has a 40-50% plaque proximally, the rest of the vessel has no high-grade stenosis Left Ventriculogram: Not performed Hemodynamics: There was no gradient across the aortic valve, LVEDP was 20-22 mmHg Conclusion: 1. Chronically occluded OM 2 2. 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 Mild disease in the mid LAD 4. And successful recanalization of the chronically occluded OM 2 Recommendations: The patient will continue on maximum medical therapy and if she has recurrent symptoms then I would recommend to proceed with attempted angioplasty of the chronically occluded OM 2. The findings and the recommendations were discussed with the patient and the family and they were in full understanding and agreement. Duration of sedation is 45 minutes.
[2023-02-20] MEDS ORDERED: SODIUM CHLORIDE 0.9% 1,000 ML in EMPTY BAG 1 BAG IV SCH (09:00)
[2023-02-20] MEDS: SODIUM CHLORIDE 0.9% 1,000 ML in EMPTY BAG 1 BAG IV SCH ×2 (09:07→17:22)
[2023-02-20] MEDS: ISOSORBIDE MONONITRATE ER 30 MG TAB.ER.24H PO SCH (09:13)
[2023-02-20 12:46] VITALS: BMI 37.7
[2023-02-20] MEDS: HYDROcodone/APAP 5-325MG 1 EACH TAB PO PRN (15:19)
--- NOTE | 2023-02-20 15:37 | P.PN ---
Subjective Progress Note Date: 02/20/23 Hospital course: Patient is a very pleasant 62-year-old female with a past medical history of hypertension, anxiety and depression, GERD, and nicotine dependence. She presented to the emergency department on 02/18/23 secondary to complaints of chest pain. She was initially seen at [facility] and transferred to our facility for elevated troponin after being started on aspirin, Nitropaste, and a heparin infusion for treatment of NSTEMI. Upon arrival to facility, she underw ent full evaluation in the emergency department. Vital signs upon arrival temperature was 97.7F, heart rate 56, respiratory rate 18, blood pressure 137/69, with SpO2 of 95% on room air. Labs completed and reviewed. CBC and BMP unremarkable. Troponin negative at less than 0.012. PTT 54.6. EKG revealed sinus bradycardia at 51 bpm with a right bundle-branch block. Repeat EKG completed this morning revealing sinus bradycardia at 52 bpm with a right bundle branch block. Chest x-ray completed at previous facility was negative for acute cardiopulmonary process. Patient was admitted under our services of consultation cardiology. Lipid profile showing elevated total cholesterol 207 otherwise normal findings. Echocardiogram completed showing a preserved EF of 55-60%. Cardiology following and took patient for cardiac stress test. Stress test showing nonischemic EKG response to Lexiscan infusion, hypertensive response to Lexiscan infusion, and overall normal EKG component of Lexiscan stress test. Lexiscan stress test showing scintigraphic findings demonstrating a large area of reversibility along the inferiolateral wall. Cardiac cath completed this morning revealing a chronically occluded obtuse marginal, moderate disease in the proximal RCA, mild disease in the mid LAD, and s uccessful recannulization of the chronically occluded obtuse marginal. Cardiology recommending continued on maximum medical therapy and if patient with continued or recurrent symptoms they will proceed with attempted angioplasty of the chronically occluded obtuse marginal. Patient was started on isosorbide mononitrate 30 mg daily in addition to continuation of aspirin 81 mg daily lisinopril 40 mg daily. Physical exam: Vital signs reviewed and stable. General: Nontoxic, no distress and appears stated age. Derm: Skin warm and dry, normal coloration for ethnicity. Head: Atraumatic, normocephalic and symmetric. Eyes: EOMs intact, no lid lag, and anicteric sclera Mouth: no lip lesions, mucus membranes moist Cardiovascular: regular rate and rhythm with normal S1S2, no murmur, positive posterior tibial pulses bilaterally, and cap refill < 2 seconds. Lungs: Respirations even, regular, and unlabored on room air. Lungs CTA bilaterally, no rhonchi, no rales, no wheezing, and no accessory muscle usage. Abdominal: soft, nontender to palpation, no guarding, no appreciable organomegaly Ext: ROM intact. No gross muscle atrophy, no edema, no contractures Neuro: Speech clear, face symmetrical and CN II-XII grossly intact with no noted focal neuro deficits Psych: Alert and oriented to person, place, time, and situation. Appropriate and pleasant affect. Assessment and Plan of Care: NSTEMI Hypertension Nicotine dependence GERD Anxiety and depression -Cardiology following and started patient on isosorbide mononitrate 30 mg daily -Patient to remain on continuous telemetry monitoring -Continue Aspirin 81 mg daily and lisinopril 40 mg daily. -Lipid profile showing elevated total cholesterol 207 otherwise normal findings. -Echocardiogram completed showing a preserved EF of 55-60%. -Stress test showing nonischemic EKG response to Lexiscan infusion, hypertensive response to Lexiscan infusion, and overall normal EKG component of Lexiscan stress test. Lexiscan stress test showing scintigraphic findings demonstrating a large area of reversibility along the inferiolateral wall -Cardiac cath completed this morning revealing a chronically occluded obtuse marginal, moderate disease in the proximal RCA, mild disease in the mid LAD, and successful recannulization of the chronically occluded obtuse marginal. Cardiology recommending continued on maximum medical therapy and if patient with continued or recurrent symptoms they will proceed with attempted angioplasty of the chronically occluded obtuse marginal. Data and imaging reviewed: -Vital signs reviewed. Blood pressure 135/73, heart rate 57, respiratory rate 20, temp 97.7F, and SpO2 of 95% on room air. -Cardiac cath completed this morning revealing a chronically occluded obtuse marginal, moderate disease in the proximal RCA, mild disease in the mid LAD, and successful recannulization of the chronically occluded obtuse marginal. Cardiology recommending continued on maximum medical therapy and if patient with continued or recurrent symptoms they will proceed with attempted angioplasty of the chronically occluded obtuse marginal. CODE STATUS: Full code DVT prophylaxis: Heparin Anticipated discharge date: Clinical course to determine Anticipated discharge place: Clinical course to determine Patient was seen independently by Nurse Pracitioner. This document was prepared using [employer] dictation software. Please allow for errors in supervisory aide, while rare they do occur. Objective - Vital Signs Vital signs: Vital Signs Temp 97.9 F 02/20/23 04:00 Pulse 55 L 02/20/23 04:00 Resp 16 02/20/23 04:00 BP 123/58 02/20/23 04:00 Pulse Ox 98 02/20/23 04:00 FiO2 Intake & Output 02/19/23 02/20/23 02/20/23 18:59 06:59 18:59 Intake Total 120 Balance 120 Intake: Oral 120 Other: Voiding Method Toilet # Voids 3 3 - Labs CBC & Chem 7: 02/19/23 07:11 02/19/23 07:11
[2023-02-20] MEDS: ATORVASTATIN 40 MG TAB PO SCH (20:13)
[2023-02-20] MEDS: MORPHINE SULFATE 4 MG/ML SYRINGE IV PRN (20:14)
[2023-02-21] MEDS: PANTOPRAZOLE 40 MG TABLET PO SCH (06:28)
[2023-02-21] MEDS: ACETAMINOPHEN TAB 325 MG TAB PO PRN (06:29)
[2023-02-21] MEDS: SODIUM CHLORIDE 0.9% 1,000 ML in EMPTY BAG 1 BAG IV SCH (07:55)
[2023-02-21] MEDS: HEPARIN SODIUM,PORCINE 5,000 UNIT/ML 1 ML VIAL SQ SCH (08:03)
[2023-02-21] MEDS: lisinopriL 20 MG TAB PO SCH (08:03)
[2023-02-21] MEDS: ASPIRIN 81 MG PO SCH (08:03)
[2023-02-21] MEDS: ISOSORBIDE MONONITRATE ER 30 MG TAB.ER.24H PO SCH (08:03)
[2023-02-21] MEDS: LIDOCAINE 4% PATCH TOPICAL SCH (08:04)
[2023-02-21] MEDS ORDERED: CLOPIDOGREL 75 MG TAB PO SCH (09:00)
[2023-02-21] MEDS: ONDANSETRON 4 MG/2 ML VIAL IVP PRN (09:15)
[2023-02-21 09:19] LABS: HCT 38.7 % (34.0-46.0); HGB 12.9 gm/dL (11.4-16.0); MCH 31.4 pg (25.0-35.0); MCHC 33.4 g/dL (31.0-37.0); Mean Platelet Volume 8.3; Platelet Count 158 k/uL (150-450); RBC 4.11 m/uL (3.80-5.40); RDW 13.7 % (11.5-15.5); WBC 5.4 k/uL (3.8-10.6)
[2023-02-21 09:47] VITALS: TEMP 98.5
[2023-02-21 09:48] LABS: African American GFR (CKD) 76 (>60 ml/min/1.73 sqM); Anion Gap 7 mmol/L; Blood Urea Nitrogen 14 mg/dL (7-17); Calcium 8.8 mg/dL (8.4-10.2); Carbon Dioxide 25 mmol/L (22-30); Chloride 105 mmol/L (98-107); Glucose 141 mg/dL (74-99); Non-African American GFR(CKD) 66 (>60 ml/min/1.73 sqM); Potassium 3.9 mmol/L (3.5-5.1); Sodium 137 mmol/L (137-145)
--- NOTE | 2023-02-21 11:27 | P.DS ---
Providers Date of admission: 02/18/23 06:37 Expected date of discharge: 02/21/23 Attending physician: Karli Arce MD Consults: 02/18/23 06:35 Consult Physician Urgent Consulting Provider: Danilo Jaquez Consult Reason/Comments: Transfer for NSTEMI, neg troponin here Do you want consulting provider notified?: Yes 02/20/23 08:48 Consult Physician Routine Consulting Provider: [facility] Consult Reason/Comments: Post Interventional Patient Do you want consulting provider notified?: Already Contacted Primary care physician: Jeremiah Moncada Hospital Course: Discharge Diagnosis: NSTEMI CAD Hypertension Nicotine dependence GERD Anxiety and depression Hospital Course: Patient is a very pleasant 62-year-old female with a past medical history of hy pertension, anxiety and depression, GERD, and nicotine dependence. She presented to the emergency department on 02/18/23 secondary to complaints of chest pain. She was initially seen at [facility] and transferred to our facility for elevated troponin after being started on aspirin, Nitropaste, and a heparin infusion for treatment of NSTEMI. Upon arrival to facility, she underwent full evaluation in the emergency department. Vital signs upon arrival temperature was 97.7F, heart rate 56, respiratory rate 18, blood pressure 137/69, with SpO2 of 95% on room air. Labs completed and reviewed. CBC and BMP unremarkable. Troponin negative at less than 0.012. PTT 54.6. EKG revealed sinus bradycardia at 51 bpm with a right bundle-branch block. Repeat EKG completed this morning revealing sinus bradycardia at 52 bpm with a right bundle branch block. Chest x-ray completed at previous facility was negative for acute cardiopulmonary process. Patient was admitted under our services of consultation cardiology. Lipid profile showing elevated total cholesterol 207 otherwise normal findings. Echocardiogram completed showing a preserved EF of 55-60%. Cardiology following and took patient for cardiac stress test. Stress test showing nonischemic EKG response to Lexiscan infusion, hypertensive response to Lexiscan infusion, and overall normal EKG component of Lexiscan stress test. Lexiscan stress test showing scintigraphic findings demonstrating a large area of reversibility along the inferiolateral wall. Cardiac cath completed this morning revealing a chronically occluded obtuse marginal, moderate disease in the proximal RCA, mild disease in the mid LAD, and successful recannulization of the chronically occluded obtuse marginal. Cardiology recommending continued on maximum medical therapy and if patient with continued or recurrent symptoms they will proceed with attempted angioplasty of the chronically occluded obtuse marginal. Patient being discharged on dual antiplatelet therapy as well as antianginal therapy. She will follow-up with cardiology outpatient. Patient seen and examined at bedside. Vital signs reviewed and stable. General: nontoxic, no distress, appears at stated age Derm: warm, dry Head: atraumatic, normocephalic, symmetric Eyes: EOMI, no lid lag, anicteric sclera Mouth: no lip lesion, mucus membranes moist Cardiovascular: S1S2 reg, no murmur Lungs: CTA bilateral, no rhonchi, no rales , no accessory muscle use Abdominal: soft, nontender to palpation, no guarding, no appreciable organomegaly Ext: no gross muscle atrophy, no edema, no contractures Neuro: CN II-XI grossly intact, no focal neuro deficits Psych: Alert, oriented, appropriate affect A total of 33 minutes of time were spent preparing this complex discharge summary. Patient was discharged on 02/21/23 at 1125. Patient Condition at Discharge: Stable Plan - Discharge Summary Discharge Rx Participant: No New Discharge Prescriptions: New Aspirin 81 mg PO DAILY #90 tab Isosorbide Mononitrate ER [Imdur] 30 mg PO DAILY #90 tab Atorvastatin [Lipitor] 40 mg PO HS #90 tab Clopidogrel [Plavix] 75 mg PO DAILY #90 tab Continue Pantoprazole [Protonix] 40 mg PO DAILY Cholecalciferol [Vitamin D3 (25 Mcg = 1000 Iu)] 50 mcg PO DAILY buPROPion SR [Wellbutrin SR] 150 mg PO BID Escitalopram [Lexapro] 20 mg PO DAILY lisinopriL [Prinivil] 20 mg PO DAILY Fexofenadine HCl 180 mg PO DAILY Multivitamins, Thera [Multivitamin (formulary)] 1 tab PO DAILY Cyanocobalamin (Vitamin B-12) [Vitamin B-12] 1,000 mcg PO DAILY Discharge Medication List Cholecalciferol [Vitamin D3 (25 Mcg = 1000 Iu)] 50 mcg PO DAILY 02/18/23 [History] Cyanocobalamin (Vitamin B-12) [Vitamin B-12] 1,000 mcg PO DAILY 02/18/23 [History] Fexofenadine HCl 180 mg PO DAILY 02/18/23 [History] Multivitamins, Thera [Multivitamin (formulary)] 1 tab PO DAILY 02/18/23 [History] Pantoprazole [Protonix] 40 mg PO DAILY 02/18/23 [History] lisinopriL [Prinivil] 20 mg PO DAILY 02/18/23 [History] Escitalopram [Lexapro] 20 mg PO DAILY 02/19/23 [History] buPROPion SR [Wellbutrin SR] 150 mg PO BID 02/19/23 [History] Aspirin 81 mg PO DAILY #90 tab 02/21/23 [Rx] Atorvastatin [Lipitor] 40 mg PO HS #90 tab 02/21/23 [Rx] Clopidogrel [Plavix] 75 mg PO DAILY #90 tab 02/21/23 [Rx] Isosorbide Mononitrate ER [Imdur] 30 mg PO DAILY #90 tab 02/21/23 [Rx] Follow up Appointment(s)/Referral(s): Danilo Jaquez MD [STAFF PHYSICIAN] - 1 Week Jeremiah Moncada MD [Primary Care Provider] - 1-2 days Patient Instructions/Handouts: Coronary Artery Disease (DC) Discharge Disposition: HOME SELF-CARE
[2023-02-21 11:31] VITALS: BP 131/66; PULSE 60; RESP 16
== END 2023-02-21 12:41 | disposition home or self-care (01) | DRG 190 ==
LOC: EC 05:23 → 3SCARD 06:37
PROVIDERS: ADMIT Internal Medicine; ATTEND Internal Medicine
PROC: B2111ZZ Fluoroscopy of Multiple Coronary Arteries using Low Osmolar Contrast (ICD-10-PCS; 2023-02-20)
PROC: 4A023N7 Measurement of Cardiac Sampling and Pressure, Left Heart, Percutaneous Approach (ICD-10-PCS; principal; 2023-02-20 08:50)
DX: I21.4 Non-ST elevation (NSTEMI) myocardial infarction (principal); I45.10 Unspecified right bundle-branch block; I10 Essential (primary) hypertension; F32.A Depression, unspecified; F17.210 Nicotine dependence, cigarettes, uncomplicated; I25.119 Atherosclerotic heart disease of native coronary artery with unspecified angina pectoris; K21.9 Gastro-esophageal reflux disease without esophagitis; F41.9 Anxiety disorder, unspecified; Z53.8 Procedure and treatment not carried out for other reasons; Z28.310 Unvaccinated for COVID-19; Z82.49 Family history of ischemic heart disease and other diseases of the circulatory system; Z79.899 Other long term (current) drug therapy; Z88.2 Allergy status to sulfonamides; Z98.84 Bariatric surgery status
CPT/HCPCS: 36415; 78452; 80048; 80053; 80061; 83036; 83735; 84443; 84484; 85025; 85027; 85610; 85730; 93005; 93017; 93306; 93458; 94760; 96374; 99285

== ENCOUNTER 2023-03-16 10:09 | Inpatient (IN) | payer MEDICARE, OTHER ==
[2023-03-16] MEDS ORDERED: HEPARIN SODIUM 1,000 UN/ML (10ML VL) IV PRN (10:29)
[2023-03-16] MEDS ORDERED: HEPARIN SOD,PORK IN 0.45% NACL 25,000 UNIT in 0.45% NACL 1 250ML.BAG IV SCH (10:30)
[2023-03-16] MEDS ORDERED: NITROGLYCERIN OINT 1 INCH/GM PACKET TOPICAL STA (10:34)
[2023-03-16] MEDS ORDERED: NITROGLYCERIN SL TABS 0.4 MG TAB SUBLINGUAL PRN (10:58)
--- NOTE | 2023-03-16 10:58 | ED ---
Chest Pain HPI - General Chief Complaint: Chest Pain Stated Complaint: Chest Pain Time Seen by Provider: 03/16/23 10:27 Source: patient, EMS, RN notes reviewed Mode of arrival: EMS Limitations: no limitations - History of Present Illness Initial Comments: 62-year-old female presented emergency department as a transfer from [facility]. Patient states that she started having chest pain in which she took nitro. She states it did help. She states she again adjustments morning took [address] [facility] 4:30 AM. Patient initial troponin was negative patient does have significant cardiac history. Patient's was sent here for further cardiology evaluation she did have an old some of her gallbladder which showed gallstones but no other complaint factors. She states nitro took her pain away she was placed on heparin and nitro drip - Related Data Home Medications Medication Instructions Recorded Confirmed Cholecalciferol [Vitamin D3 (25 25 mcg PO DAILY 02/18/23 03/16/23 Mcg = 1000 Iu)] Cyanocobalamin (Vitamin B-12) 1,000 mcg PO DAILY 02/18/23 03/16/23 [Vitamin B-12] Pantoprazole [Protonix] 40 mg PO DAILY 02/18/23 03/16/23 Metoprolol Succinate (ER) [Toprol 25 mg PO DAILY 03/16/23 03/16/23 Xl] Nitroglycerin Sl Tabs [Nitrostat] 0.4 mg SL Q5M PRN 03/16/23 03/16/23 Valsartan [Diovan] 40 mg PO DAILY 03/16/23 03/16/23 Previous Rx's Medication Instructions Recorded Aspirin 81 mg PO DAILY #90 tab 02/21/23 Atorvastatin [Lipitor] 40 mg PO HS #90 tab 02/21/23 Clopidogrel [Plavix] 75 mg PO DAILY #90 tab 02/21/23 Isosorbide Mononitrate ER [Imdur] 30 mg PO DAILY #90 tab 02/21/23 Allergies Allergy/AdvReac Type Severity Reaction Status Date / Time Sulfa (Sulfonamide Allergy Rash/Hives Verified 03/16/23 11:46 Antibiotics) all over body sulfamethoxazole Allergy Rash/Hives Verified 03/16/23 11:46 [From Bactrim] all over body trimethoprim [From Bactrim] Allergy Rash/Hives Verified 01/05/24 11:46 all over body Review of Systems ROS Statement: Those systems with pertinent positive or pertinent negative responses have been documented in the HPI. ROS Other: All systems not noted in ROS Statement are negative. EKG Findings - EKG Comments: EKG Findings:: EKG performed at 10:34 sinus bradycardia rate of 50 OK 200 QRS 133 QT/QTC 494/469 - EKG Results: EKG: interpreted by PORSCHE Past Medical History Past Medical History: Hypertension History of Any Multi-Drug Resistant Organisms: None Reported Past Surgical History: Bariatric Surgery, Section, Orthopedic Surgery, Tonsillectomy Additional Past Surgical History / Comment(s): lump removed from neck Past Anesthesia/Blood Transfusion Reactions: No Reported Reaction Past Psychological History: Depression Smoking Status: Current every day smoker Past Alcohol Use History: None Reported Past Drug Use History: None Reported - Past Family History Mother Family Medical History: No Reported History Father Family Medical History: Coronary Artery Disease (CAD) Additional Family Medical History / Comment(s): triple bypass, esophageal cancer General Exam Limitations: no limitations General appearance: alert, in no apparent distress Head exam: Present: atraumatic, normocephalic, normal inspection Eye exam: Present: normal appearance, PERRL, EOMI. Absent: scleral icterus, conjunctival injection, periorbital swelling ENT exam: Present: normal exam, mucous membranes moist Neck exam: Present: normal inspection, full ROM. Absent: tenderness, meningismus, lymphadenopathy Respiratory exam: Present: normal lung sounds bilaterally. Absent: respiratory distress, wheezes, rales, rhonchi, stridor Cardiovascular Exam: Present: normal rhythm, tachycardia, normal heart sounds. Absent: systolic murmur, diastolic murmur, rubs, gallop, clicks GI/Abdominal exam: Present: soft, normal bowel sounds. Absent: distended, tenderness, guarding, rebound, rigid Back exam: Absent: CVA tenderness (R), CVA tenderness (L) Course Vital Signs 03/16/23 03/16/23 03/16/23 10:15 10:30 11:00 Temperature 98.6 F Pulse Rate 52 L 62 52 L Respiratory 16 20 20 Rate Blood Pressure 134/67 134/67 138/64 O2 Sat by Pulse 97 95 95 Oximetry Chest Pain MDM - MDM Was pt. sent in by a medical professional or institution (, PA, COTTON INSPECTOR, urgent care, hospital, or prison...) When possible be specific @ -[[facility] Did you speak to anyone other than the patient for history (EMS, parent, family, police, friend...)? What history was obtained from this source @ -No Did you review nursing and triage notes (agree or disagree)? Why? @ -I reviewed and agree with nursing and triage notes Were old charts reviewed (outside hosp., previous admission, EMS record, old EKG, old radiological studies, urgent care reports/EKG's, prison records)? Report findings @ -Reviewed records from [facility] Differential Diagnosis (chest pain, altered mental status, abdominal pain women, abdominal pain men, vaginal bleeding, weakness, fever, dyspnea, syncope, headache, dizziness, GI bleed, back pain, seizure, CVA, palpatations, mental health, musculoskeletal)? @ -Differential Chest Pain: Stable Angina, Unstable Angina, STEMI, NSTEMI Aortic Dissection, Pneumothorax, Musculoskeletal, Esophageal Spasm GERD, Cholecystitis, Pancreatitis, Zoster, this is not meant to be an all-inclusive list. EKG interpreted by me (3pts min.). @ -As above X-rays interpreted by me (1pt min.). @ -None done CT interpreted by me (1pt min.). @ -None done U/S interpreted by me (1pt. min.). @ -None done What testing was considered but not performed or refused? (CT, X-rays, U/S, labs)? Why? @ -None What meds were considered but not given or refused? Why? @ -None Did you discuss the management of the patient with other professionals (professionals i.e. , PA, COTTON INSPECTOR, lab, RT, psych nurse, social sciences lecturer, client support professional, teacher, tactical debriefer officer, oil field caser)? Give summary @ -Dr. Veras for admission for cardiac rule out Was smoking cessation discussed for >3mins.? @ -No Was critical care preformed (if so, how long)? @ -No Were there social determinants of health that impacted care today? How? (Homelessness, low income, unemployed, alcoholism, drug addiction, transportation, low edu. Level, literacy, decrease access to med. care, [facility], rehab)? @ -No Was there de-escalation of care discussed even if they declined (Discuss DNR or withdrawal of care, Hospice)? DNR status @ -No What co-morbidities impacted this encounter? (DM, HTN, Smoking, COPD, CAD, Cancer, CVA, ARF, Chemo, Hep., AIDS, mental health diagnosis, sleep apnea, morbid obesity)? @ -CAD Was patient admitted / discharged? Hospital course, mention meds given and route, prescriptions, significant lab abnormalities, going to OR and other pertinent info. @ -Admitted patiently admitted for cardiac rule out patient has significant cardiac history initial troponin is negative. Heparin was stopped base on second troponin negative after discussion with hospitalist, patient did have nitro paste on. Undiagnosed new problem with uncertain prognosis? @ -No Drug Therapy requiring intensive monitoring for toxicity (Heparin, Nitro, Insulin, Cardizem)? @ -No Were any procedures done? @ -No Diagnosis/symptom? @ -Chest pain Acute, or Chronic, or Acute on Chronic? @ -Acute Uncomplicated (without systemic symptoms) or Complicated (systemic symptoms)? @ -[uncomplicated effects of treatment? @ -[No Eacerbation, Progression, or Severe Exacerbation? @ -[No Pses a threat to life or bodily function? How? (Chest pain, [place], [place], pneumonia, PE, COPD, DKA, ARF, appy, cholecystitis, CVA, Diverticulitis, Homicidal, Suicidal, threat to staff... and all critical care pts) @ -[No Disposition Clinical Impression: Chest pain Disposition: ADMITTED IP TO THIS HOSP Condition: Fair Time of Disposition: 10:58
--- NOTE | 2023-03-16 12:58 | P.CRDCN ---
History of Present Illness History of present illness: HISTORY OF PRESENT ILLNESS: This is a 62-year-old female with a past medical history significant for hypertension, hyperlipidemia, and coronary artery disease. Patient states she follows with a deaf interpreter in [place] but is unable to recall his name. We have been asked to see the patient in consultation for chest pain. Patient examined at the bedside in the emergency room. Patient states that she developed chest pain last night when she was in bed. She states that she woke up and took a nitro and then went back to sleep. She states she woke up again around 445 this morning with chest pain that radiated into her back. She states that she took 2 additional nitro with minimal improvement. She called EMS and was brought to [facility] and eventually transferred to [facility] for further evaluation. At the time of examination, she denies chest pain or pressure. She denies shortness of breath. Vital signs are stable. * EKG completed at [facility] revealed sinus mechanism with no signs of acute ischemia. Repeat EKG pending. * Laboratory data: Troponin negative 2 * Current home cardiac medications include aspirin 81 mg daily, Lipitor 40 mg at night, Plavix 75 mg daily, Imdur 30 mg daily, metoprolol succinate 25 mg daily, and valsartan 40 mg daily * Most recent echocardiogram obtained in February 2023 reveals ejection fraction 55-60% with no significant valvular dysfunction. * Cardiac catheterization history: February 2023 revealing chronically occluded OM 2, moderate disease in the proximal RCA, mild disease in the mid LAD. Unsuccessful recannulization of chronically occluded OM 2 secondary to reaching dye maximum REVIEW OF SYSTEMS: At the time of my exam: CONSTITUTIONAL: Denies fever or chills. HEENT: Denies blurred vision, vision changes, or eye pain. Denies hemoptysis CARDIOVASCULAR: Denies chest pain. Denies orthopnea. Denies PND. Denies palpitations RESPIRATORY: Denies shortness of breath. GASTROINTESTINAL: Denies abdominal pain. Denies nausea or vomiting. HEMATOLOGIC: Denies bleeding disorders. GENITOURINARY: Denies any blood in urine. SKIN: Denies pruitis. Denies rash. PHYSICAL EXAM: VITAL SIGNS: Reviewed. GENERAL: Well-developed in no acute distress. HEENT: Head is normocephalic. Pupils are equal, round. Sclerae anicteric. Mucous membranes of the mouth are moist. Neck supple. No JVD or thyromegaly LUNGS: Respirations even and unlabored. Lungs essentially clear to auscultation bilaterally. HEART: Regular rate and rhythm. S1 and S2 heard. ABDOMEN: Soft. Nondistended. Nontender. EXTREMITIES: Normal range of motion. No clubbing or cyanosis. Peripheral pulses intact. No lower extremity edema NEUROLOGIC: Awake and alert. Oriented x 3. ASSESSMENT: 1. Chest pain, troponins negative 2 2. Coronary artery disease, status post recent cardiac catheterization in February 2023 revealing chronically occluded OM 2, moderate disease in the proximal RCA, mild disease in the mid LAD. Unsuccessful recannulization of chronically occluded OM 2 secondary to reaching dye maximum 3. Hypertension 4. Hyperlipidemia 5. Morbid obesity: BMI 37.6 PLAN: Trend troponins Resume home cardiac medications Obtain limited echocardiogram to assess LV function and wall motion abnormalities Continue to monitor patient for an additional 24 hours. If no further episodes of chest pain, the patient may be discharged home and follow up with her primary deaf interpreter out of [place] Further recommendations pending patient's course Nurse practitioner note has been reviewed by physician. Signing provider agrees with the documented findings, assessment, and plan of care. Past Medical History Past Medical History: Hypertension History of Any Multi-Drug Resistant Organisms: None Reported Past Surgical History: Bariatric Surgery, Section, Orthopedic Surgery, Tonsillectomy Additional Past Surgical History / Comment(s): lump removed from neck Past Anesthesia/Blood Transfusion Reactions: No Reported Reaction Past Psychological History: Depression Smoking Status: Current every day smoker Past Alcohol Use History: None Reported Past Drug Use History: None Reported - Past Family History Mother Family Medical History: No Reported History Father Family Medical History: Coronary Artery Disease (CAD) Additional Family Medical History / Comment(s): triple bypass, esophageal cancer Medications and Allergies Home Medications Medication Instructions Recorded Confirmed Type Cholecalciferol [Vitamin D3 (25 25 mcg PO DAILY 02/18/23 03/16/23 History Mcg = 1000 Iu)] Cyanocobalamin (Vitamin B-12) 1,000 mcg PO DAILY 02/18/23 03/16/23 History [Vitamin B-12] Pantoprazole [Protonix] 40 mg PO DAILY 02/18/23 03/16/23 History Aspirin 81 mg PO DAILY #90 tab 02/21/23 03/16/23 Rx Atorvastatin [Lipitor] 40 mg PO HS #90 tab 02/21/23 03/16/23 Rx Clopidogrel [Plavix] 75 mg PO DAILY #90 tab 02/21/23 03/16/23 Rx Isosorbide Mononitrate ER [Imdur] 30 mg PO DAILY #90 tab 02/21/23 03/16/23 Rx Metoprolol Succinate (ER) [Toprol 25 mg PO DAILY 03/16/23 03/16/23 History Xl] Nitroglycerin Sl Tabs [Nitrostat] 0.4 mg SL Q5M PRN 03/16/23 03/16/23 History Valsartan [Diovan] 40 mg PO DAILY 03/16/23 03/16/23 History Allergies Allergy/AdvReac Type Severity Reaction Status Date / Time Sulfa (Sulfonamide Allergy Rash/Hives Verified 03/16/23 11:46 Antibiotics) all over body sulfamethoxazole Allergy Rash/Hives Verified 03/16/23 11:46 [From Bactrim] all over body trimethoprim [From Bactrim] Allergy Rash/Hives Verified 03/16/23 11:46 all over body Physical Exam Vitals: Vital Signs Temp Pulse Resp BP Pulse Ox 03/16/23 11:00 52 L 20 138/64 95 03/16/23 10:30 62 20 134/67 95 03/16/23 10:15 98.6 F 52 L 16 134/67 97 Intake and Output 03/15/23 03/16/23 03/16/23 22:59 06:59 14:59 Other: Weight 108.862 kg Results Cardiac Enzymes 03/16/23 Range/Units 10:55 Troponin I <0.012 (0.000-0.034) ng/mL Current Medications Generic Name Dose Route Start Last Admin Trade Name Freq PRN Reason Stop Dose Admin Aspirin 325 mg 03/17/23 09:00 Aspirin 325 Mg Tab PO DAILY AMY Heparin Sodium (Porcine) 0 unit 03/16/23 10:29 Heparin Sodium 1,000 Un/Ml (10ml Vl) IV PER PROTOCOL PRN Low PTT Protocol Nitroglycerin 0.4 mg 03/16/23 10:58 Nitroglycerin Sl Tabs 0.4 Mg Tab SUBLINGUAL Q5M PRN Chest Pain Intake and Output 03/15/23 03/16/23 03/16/23 22:59 06:59 14:59 Other: Weight 108.862 kg Patient Weight 03/17/23 06:59 Weight 108.862 kg
--- NOTE | 2023-03-16 16:45 | P.HPIM ---
History of Present Illness H&P Date: 03/16/23 Patient is a 62-year-old female with history of hypertension, dyslipidemia, CAD presenting with chest pain. Pain initially started yesterday all of a sudden, tightness, mostly epigastric and substernal radiating to her back. She also had some nausea and some shortness of breath. Denies any diaphoresis or palpitations or lightheadedness. Denies any other abdominal pain. She took total of 3 nitroglycerin, without any relief and then presented to an also Hospital. There she had workup that showed an EKG with T-wave inversions in V1- 3. Troponin was negative. LFTs were elevated. She was then transferred to our facility. Patient smokes about half pack a day. Denies any alcohol use. Uses edible marijuana. In the ED, temperature was 98.6, pulse 52, respiratory 16, blood pressure 130/67, saturating at 97% on room air. Troponin negative 2. Cardiology consulted. Patient admitted for observation due to chest pain. Pertinent positives and negatives as discussed in HPI, a complete review of systems was performed and all other systems are negative. Patient seen and examined at bedside. Vital signs reviewed General: nontoxic, no distress, appears at stated age Derm: warm, dry Head: atraumatic, normocephalic, symmetric Eyes: EOMI, no lid lag, anicteric sclera, pupils equal round reactive to light ENT: Nose and ears atraumatic Neck: No thyromegaly, supple Mouth: no lip lesion, mucus membranes moist Cardiovascular: S1S2 reg, no murmur, no edema Lungs: clear to auscultation bilateral, no rhonchi, no rales, no wheeze, no accessory muscle use Abdominal: soft, nontender to palpation, no guarding, no appreciable organomegaly Ext: no gross muscle atrophy, muscle strength muscle strength 5 out of 5 in all 4 extremities, no contractures Neuro: CN II-XII grossly intact Psych: Alert, oriented, appropriate affect Assessment/Plan: Chest pain, rule out ACS Transaminitis History of CAD Hypertension Dyslipidemia GERD Nicotine dependence -Continue trend troponin -Continue telemetry -Cardiology note reviewed, limited echo pending, likely discharge if no further chest pain -Rule out gallbladder disease, ultrasound pending -Continue aspirin 81 mg, atorvastatin 40 mg, Lasix 75 mg, isosorbide mononitrate 30 mg, metoprolol 25 mg, losartan 40 mg -Continue pantoprazole 40 mg -CBC and CMP tomorrow -Patient counseled regarding smoking cessation The patient is admitted with an anticipated less than 2 midnight stay as observation status for evaluation of chest pain. Surrogate decision-maker: Son-in-law CODE STATUS: full code DVT prophylaxis: lovenox Anticipated discharge date: tomorr Anticipated discharge place: home A total of 55 minutes was spent on the care of this complex patient more than 50% of the time was spent in counseling and care coordination. Past Medical History Past Medical History: Hypertension History of Any Multi-Drug Resistant Organisms: None Reported Past Surgical History: Bariatric Surgery, Section, Orthopedic Surgery, Tonsillectomy Additional Past Surgical History / Comment(s): lump removed from neck Past Anesthesia/Blood Transfusion Reactions: No Reported Reaction Past Psychological History: Depression Smoking Status: Current every day smoker Past Alcohol Use History: None Reported Past Drug Use History: None Reported - Past Family History Mother Family Medical History: No Reported History Father Family Medical History: Coronary Artery Disease (CAD) Additional Family Medical History / Comment(s): triple bypass, esophageal cancer Medications and Allergies Home Medications Medication Instructions Recorded Confirmed Type Cholecalciferol [Vitamin D3 (25 25 mcg PO DAILY 02/18/23 03/16/23 History Mcg = 1000 Iu)] Cyanocobalamin (Vitamin B-12) 1,000 mcg PO DAILY 02/18/23 03/16/23 History [Vitamin B-12] Pantoprazole [Protonix] 40 mg PO DAILY 02/18/23 03/16/23 History Aspirin 81 mg PO DAILY #90 tab 02/21/23 03/16/23 Rx Atorvastatin [Lipitor] 40 mg PO HS #90 tab 02/21/23 03/16/23 Rx Clopidogrel [Plavix] 75 mg PO DAILY #90 tab 02/21/23 03/16/23 Rx Isosorbide Mononitrate ER [Imdur] 30 mg PO DAILY #90 tab 02/21/23 03/16/23 Rx Metoprolol Succinate (ER) [Toprol 25 mg PO DAILY 03/16/23 03/16/23 History Xl] Nitroglycerin Sl Tabs [Nitrostat] 0.4 mg SL Q5M PRN 03/16/23 03/16/23 History Valsartan [Diovan] 40 mg PO DAILY 03/16/23 03/16/23 History Allergies Allergy/AdvReac Type Severity Reaction Status Date / Time Sulfa (Sulfonamide Allergy Rash/Hives Verified 03/16/23 11:46 Antibiotics) all over body sulfamethoxazole Allergy Rash/Hives Verified 03/16/23 11:46 [From Bactrim] all over body trimethoprim [From Bactrim] Allergy Rash/Hives Verified 03/16/23 11:46 all over body Physical Exam Vitals: Vital Signs Temp Pulse Resp BP Pulse Ox 03/16/23 11:00 52 L 20 138/64 95 03/16/23 10:30 62 20 134/67 95 03/16/23 10:15 98.6 F 52 L 16 134/67 97 Intake and Output 03/15/23 03/16/23 03/16/23 22:59 06:59 14:59 Other: Weight 108.862 kg
[2023-03-16] MEDS: ATORVASTATIN 40 MG TAB PO SCH (19:54)
[2023-03-16] MEDS: ACETAMINOPHEN TAB 325 MG TAB PO PRN (21:47)
[2023-03-16] MEDS: ONDANSETRON 4 MG/2 ML VIAL IVP PRN (21:47)
[2023-03-17 04:38] LABS: Basophils # (A) 0.1 k/uL (0-0.2); Basophils % (A) 1 %; Eosinophils # (A) 0.3 k/uL (0-0.7); Eosinophils % (A) 5 %; HCT 41.9 % (34.0-46.0); HGB 13.7 gm/dL (11.4-16.0); Lymphocytes # (A) 1.9 k/uL (1.0-4.8); Lymphocytes % (A) 34 %; MCH 31.4 pg (25.0-35.0); MCHC 32.7 g/dL (31.0-37.0); MCV 96.1 fL (80.0-100.0); Mean Platelet Volume 8.2; Monocytes # (A) 0.3 k/uL (0-1.0); Monocytes % (A) 6 %; Neutrophils # (A) 2.9 k/uL (1.3-7.7); Neutrophils % (A) 51 %; Platelet Count 166 k/uL (150-450); RBC 4.36 m/uL (3.80-5.40); RDW 13.9 % (11.5-15.5); WBC 5.6 k/uL (3.8-10.6)
[2023-03-17 05:09] LABS: ALT 304 U/L (4-34); AST 249 U/L (14-36); African American GFR (CKD) >90 (>60 ml/min/1.73 sqM); Albumin 3.8 g/dL (3.5-5.0); Albumin/Globulin Ratio 1.7; Alkaline Phosphatase 185 U/L (38-126); Anion Gap 7 mmol/L; Blood Urea Nitrogen 13 mg/dL (7-17); Calcium 8.9 mg/dL (8.4-10.2); Carbon Dioxide 27 mmol/L (22-30); Chloride 106 mmol/L (98-107); Globulin 2.3 g/dL; Glucose 89 mg/dL (74-99); Non-African American GFR(CKD) 81 (>60 ml/min/1.73 sqM); Potassium 4.7 mmol/L (3.5-5.1); Sodium 140 mmol/L (137-145); Total Protein 6.1 g/dL (6.3-8.2)
--- NOTE | 2023-03-17 07:40 | US ---
EXAMINATION TYPE: US abdomen limited DATE OF EXAM: 03/16/2023 COMPARISON: NONE CLINICAL INDICATION: Female, 62 years old with history of elevated LFTs; Elevated LFT's- pt states kn own gallstones TECHNIQUE: Multiple sonographic images of the right upper quadrant are obtained. FINDINGS: EXAM MEASUREMENTS: Liver Length: 15.1 cm Gallbladder Wall: 0.3 cm CBD: 0.4 cm Right Kidney: 10.1 x 5.1 x 5.1 cm PERFORMANCE IMPROVEMENT SPECIALIST NOTES: Morbidly obese pt- difficult to scan Pancreas: Difficult to visualize due to morbid obesity. The visualized pancreatic neck and a small p ortion of the pancreatic body shows no gross abnormality. Liver: Suggestion of a tiny 8 x 5 x 5 mm cyst in the left liver lobe. Limited visualization due to m orbid obesity Gallbladder: gallstones filling most of lumen . Extensive ringdown artifact along the anterior wall as well. The wall is borderline thickened at 3 mm. Evidence for sonographic Villegas's sign: Yes CBD: wnl Right Kidney: No evidence of hydro, lower pole gassed out IMPRESSION: 1. Extensive cholelithiasis. There is also extensive ring down artifact along the anterior wall of th e gallbladder; typically seen with adenomyomatosis. Note that sonographic Villegas's sign was reported positive. If concern for early acute cholecystitis, HIDA scan can be considered. 2. No biliary ductal dilatation at this time.
[2023-03-17] MEDS ORDERED: ASPIRIN 325 MG TAB PO SCH (09:00)
[2023-03-17] MEDS: PANTOPRAZOLE 40 MG TABLET PO SCH (09:30)
[2023-03-17] MEDS: CLOPIDOGREL 75 MG TAB PO SCH (09:30)
[2023-03-17] MEDS: ENOXAPARIN 40 MG/0.4 ML SYRINGE SQ SCH (09:31)
[2023-03-17] MEDS: VALSARTAN 40 MG TAB PO SCH (09:31)
[2023-03-17] MEDS: ASPIRIN 81 MG PO SCH (09:31)
[2023-03-17] MEDS: ISOSORBIDE MONONITRATE ER 30 MG TAB.ER.24H PO SCH (09:33)
[2023-03-17 09:41] LABS: Chol/HDL Ratio 2.16 Ratio; LDL Cholesterol,Calculated 56.7 mg/dL (0.0-131.0); VLDL Calculation 17.42 mg/dL (5.00-40.00)
[2023-03-17] MEDS: METOPROLOL SUCCINATE (ER) 25 MG TAB.ER.24H PO SCH (09:54)
[2023-03-17] MEDS: ACETAMINOPHEN TAB 325 MG TAB PO PRN (09:58)
[2023-03-17 10:18] LABS: INR 0.99 sec (0.93-1.11); Prothrombin Time 10.7 sec (9.9-11.9)
--- NOTE | 2023-03-17 11:12 | P.CON ---
Consult Note - . Consult date: 03/17/23 (Surgery) Assessment/Plan:: Reason for consultation: Symptomatic cholelithiasis Present illness: Patient was evaluated in the emergency room for chest pain. Extensive workup was done and cardiology is on board. Patient's pain was constant in the upper abdomen and bilateral chest. Apparently acute coronary syndrome has been excluded. Her pain has resolved at this moment however she was found to have extensive cholelithiasis. Patient seen and examined at bedside. Vital signs reviewed General: nontoxic, no distress, appears at stated age Derm: warm, dry Head: atraumatic, normocephalic, symmetric Eyes: EOMI, no lid lag, anicteric sclera, pupils equal round reactive to light ENT: Nose and ears atraumatic Neck: No thyromegaly, supple Mouth: no lip lesion, mucus membranes moist Cardiovascular: S1S2 reg, no murmur, no edema Lungs: clear to auscultation bilateral, no rhonchi, no rales, no wheeze, no accessory muscle use Abdominal: soft, nontender to palpation, no guarding, no appreciable organomegaly Ext: no gross muscle atrophy, muscle strength muscle strength 5 out of 5 in all 4 extremities, no contractures Neuro: CN II-XII grossly intact Psych: Alert, oriented, appropriate affect Assessment/Plan: Plan is to perform arthroscopic cholecystectomy on 03/19/2023 as long as cleared by cardiology. Past Medical History Past Medical History: Hypertension History of Any Multi-Drug Resistant Organisms: None Reported Past Surgical History: Bariatric Surgery, Section, Orthopedic Surgery, Tonsillectomy Additional Past Surgical History / Comment(s): lump removed from neck Past Anesthesia/Blood Transfusion Reactions: No Reported Reaction Past Psychological History: Depression Smoking Status: Current every day smoker Past Alcohol Use History: None Reported Past Drug Use History: None Reported - Past Family History Mother Family Medical History: No Reported History Father Family Medical History: Coronary Artery Disease (CAD) Additional Family Medical History / Comment(s): triple bypass, esophageal cancer
--- NOTE | 2023-03-17 12:38 | P.PN ---
Subjective Progress Note Date: 03/17/23 Hospital Course: 62-year-old female with history of hypertension, dyslipidemia, CAD presenting with chest pain. In the ED, temperature was 98.6, pulse 52, respiratory 16, blood pressure 130/67, saturating at 97% on room air. Troponin negative 2. Cardiology consulted. Patient admitted for observation due to chest pain. ACS ruled out. Abdominal ultrasound shows extensive cholelithiasis. Surgery was consulted. Pending cholecystectomy on Sunday. Subjective: Patient seen and examined at bedside. Currently asymptomatic. Pertinent positives and negatives as discussed above, a complete review of systems was performed and all other systems are negative. Vitals Signs Reviewed. General: nontoxic, no distress, appears at stated age, morbidly obese Derm: warm, dry Head: atraumatic, normocephalic, symmetric Eyes: EOMI, no lid lag, anicteric sclera Mouth: no lip lesion, mucus membranes moist Cardiovascular: S1S2 reg, no murmur Lungs: CTA bilateral, no rhonchi, no rales , no accessory muscle use Abdominal: soft, nontender to palpation, no guarding, no appreciable orga nomegaly Ext: no gross muscle atrophy, no edema, no contractures Neuro: CN II-XI grossly intact, no focal neuro deficits Psych: Alert, oriented, appropriate affect Data Reviewed Today: Pertinent Labs: WBC 5.6, hemoglobin 13.7, total bilirubin 1, AST 249, L2-3 or 4, ALP 185, troponin negative 3 Imaging: Abdominal ultrasound shows extensive cholelithiasis Assessment and Plan: Symptomatic cholelithiasis Transaminitis History of CAD Hypertension Dyslipidemia GERD Nicotine dependence -Surgery note reviewed, likely surgical intervention on Sunday -Cardiology following -Continue aspirin 81 mg, atorvastatin 40 mg, Lasix 75 mg, isosorbide mononitrate 30 mg, metoprolol 25 mg, on valsartan 40 mg daily -Continue pantoprazole 40 mg -Patient counseled regarding smoking cessation DVT ppx: Lovenox Code status: Full code Anticipated discharge place: Pending clinical course Anticipated discharge time: Pending clinical course Objective - Vital Signs Vital signs: Vital Signs Temp 97.4 F L 03/17/23 07:00 Pulse 55 L 03/17/23 07:00 Resp 20 03/17/23 07:00 BP 139/77 03/17/23 07:00 Pulse Ox 97 03/17/23 07:00 FiO2 Intake & Output 03/16/23 03/17/23 03/17/23 18:59 06:59 18:59 Intake Total 118 Balance 118 Weight 108.862 kg Intake: Oral 118 Other: # Voids 3 - Labs CBC & Chem 7: 03/17/23 04:14 03/17/23 04:18 Labs: Abnormal Lab Results - Last 24 Hours (Table) 03/17/23 Range/Units 04:18 AST 249 H (14-36) U/L ALT 304 H (4-34) U/L Alkaline Phosphatase 185 H (38-126) U/L Total Protein 6.1 L (6.3-8.2) g/dL HDL Cholesterol 63.90 H (40.00-60.00) mg/dL
--- NOTE | 2023-03-17 12:54 | CA ---
Transthoracic Echo Report Name: Nancy Soto Age: 62 Gender: F : 1960 Exam Date: 03/16/2023 13:46 Exam Location: [facility] Ht (in): 67 Wt (lb): 240 Ordering Physician: Stephanie Judge Attending/Referring Phys: [id number], Alfie Manager [employer] Aaliyah Huizar, RDCS Procedure CPT: Indications: Chest Pain Cardiac Hx: limited study, htn, high cholesterol, Technical Quality: Good Contrast 1: Total Dose (mL): Contrast 2: Total Dose (mL): MEASUREMENTS (Male / Female) Normal Values 2D ECHO LV Diastolic Volume MOD 4C 138.2 cm??? LV Systolic Volume MOD 4C 55.8 cm??? LV Ejection Fraction MOD 4C 59.6 % LV Cardiac Index MOD 4C 1814.6 cm???/min???m??? LV Diastolic Length 4C 8.7 cm LV Systolic Length 4C 6.9 cm LV Diastolic Volume MOD 2C 89.0 cm??? LV Systolic Volume MOD 2C 33.1 cm??? LV Ejection Fraction MOD 2C 62.9 % LV Cardiac Index MOD 2C 1232.6 cm???/min???m??? LV Diastolic Length 2C 8.1 cm LV Systolic Length 2C 6.7 cm DOPPLER TR Peak Velocity 257.7 cm/s TR Peak Gradient 26.6 mmHg Right Ventricular Systolic Press 30.6 mmHg FINDINGS Left Ventricle Left ventricular ejection fraction is estimated at 55-60 %. Right Ventricle Right Atrium Left Atrium Mitral Valve Structurally normal mitral valve. Trace mitral regurgitation. Aortic Valve Trileaflet aortic valve. No aortic valve stenosis or regurgitation. Tricuspid Valve Structurally normal tricuspid valve. Mild tricuspid regurgitation. Pulmonic Valve Structurally normal pulmonic valve. No pulmonic regurgitation. Pericardium No pericardial effusion. Aorta CONCLUSIONS Normal LV size and systolic function Right ventricle may be mildly enlarged with RV hypertrophy Previewed by: Dr. Ammon Phan MD (Electronically Signed) Final Date: 17 March 2023 12:52
[2023-03-17] MEDS: HYDROcodone/APAP 5-325MG 1 EACH TAB PO PRN ×2 (13:58→20:45)
[2023-03-17] MEDS: ONDANSETRON 4 MG/2 ML VIAL IVP PRN (13:59)
--- NOTE | 2023-03-17 15:35 | P.PN ---
Subjective Progress Note Date: 03/17/23 The patient is a 62-year-old female who is currently admitted to the hospital with chest discomfort. The patient does have a history of coronary artery disease with most recent cardiac catheterization in February 2023 revealing chronically occluded OM 2, moderate disease in the proximal RCA and mild disease in the mid LAD. EKG has shown no acute changes and troponins have been negative. Echo shows preserved LV function. Elevated liver enzymes prompted an ultrasound of the abdomen revealing extensive cholelithiasis with positive Villegas sign. At the time of my examination the patient denies any current chest discomfort. She states she does have intermittent episodes of nausea and some mild epiga stric discomfort. No shortness of breath. GENERAL: Well-appearing, well-nourished and in no acute distress. NECK: Supple without JVD or thyromegaly. LUNGS: Breath sounds clear to auscultation bilaterally. Respiration equal and unlabored. No wheezes, rales or rhonchi. HEART: Regular rate and rhythm without murmurs, rubs or gallops. S1 and S2 heard. EXTREMITIES: Normal range of motion, no edema. No clubbing or cyanosis. Peripheral pulses intact and strong. TELEMETRY: Sinus mechanism IMPRESSION: Chest discomfort History of coronary artery disease Cholelithiasis Transaminitis Dyslipidemia Obesity, BMI 37 PLAN: Continue home medication regimen Patient may proceed with surgical intervention if and when necessary Antiplatelet therapy will need to be held 5 days prior No further recommendations from the cardiac standpoint I am dictating on behalf of Dr Ammon Phan's history/physical and assessment/plan. Objective - Vital Signs Vital signs: Vital Signs Temp 97.4 F L 03/17/23 07:00 Pulse 55 L 03/17/23 07:00 Resp 20 03/17/23 07:00 BP 139/77 03/17/23 07:00 Pulse Ox 97 03/17/23 07:00 FiO2 Intake & Output 03/16/23 03/17/23 03/17/23 18:59 06:59 18:59 Intake Total 118 Balance 118 Weight 108.862 kg Intake: Oral 118 Other: Voiding Method Toilet # Voids 3 - Labs CBC & Chem 7: 03/17/23 04:14 03/17/23 04:18 Labs: Abnormal Lab Results - Last 24 Hours (Table) 03/17/23 Range/Units 04:18 AST 249 H (14-36) U/L ALT 304 H (4-34) U/L Alkaline Phosphatase 185 H (38-126) U/L Total Protein 6.1 L (6.3-8.2) g/dL HDL Cholesterol 63.90 H (40.00-60.00) mg/dL
[2023-03-17] MEDS: ATORVASTATIN 40 MG TAB PO SCH (20:46)
[2023-03-18] MEDS: HYDROcodone/APAP 5-325MG 1 EACH TAB PO PRN ×3 (04:26→18:41)
[2023-03-18] MEDS: ONDANSETRON 4 MG/2 ML VIAL IVP PRN ×3 (04:27→18:40)
[2023-03-18 06:26] LABS: ALT 185 U/L (4-34); AST 69 U/L (14-36); African American GFR (CKD) 85 (>60 ml/min/1.73 sqM); Albumin 3.7 g/dL (3.5-5.0); Albumin/Globulin Ratio 1.6; Alkaline Phosphatase 146 U/L (38-126); Anion Gap 6 mmol/L; Blood Urea Nitrogen 16 mg/dL (7-17); Calcium 8.9 mg/dL (8.4-10.2); Carbon Dioxide 27 mmol/L (22-30); Chloride 106 mmol/L (98-107); Globulin 2.3 g/dL; Glucose 88 mg/dL (74-99); Non-African American GFR(CKD) 74 (>60 ml/min/1.73 sqM); Potassium 4.4 mmol/L (3.5-5.1); Sodium 139 mmol/L (137-145); Total Bilirubin 0.6 mg/dL (0.2-1.3)
[2023-03-18] MEDS: PANTOPRAZOLE 40 MG TABLET PO SCH (08:37)
[2023-03-18] MEDS: ASPIRIN 81 MG PO SCH (08:37)
[2023-03-18] MEDS: VALSARTAN 40 MG TAB PO SCH (08:37)
[2023-03-18] MEDS: CLOPIDOGREL 75 MG TAB PO SCH (08:37)
[2023-03-18] MEDS: ISOSORBIDE MONONITRATE ER 30 MG TAB.ER.24H PO SCH (08:38)
[2023-03-18] MEDS: ENOXAPARIN 40 MG/0.4 ML SYRINGE SQ SCH (08:38)
[2023-03-18] MEDS: METOPROLOL SUCCINATE (ER) 25 MG TAB.ER.24H PO SCH (08:39)
--- NOTE | 2023-03-18 11:15 | P.GSCN ---
History of Present Illness Consult date: 03/18/23 Reason for Consult: Cholelithiasis History of present illness: Is a 62-year-old female who's had intermittent problems epigastric pain. Patien t underwent extensive cardiac workup. Patient's found have cholelithiasis. Past Medical History Past Medical History: Hypertension History of Any Multi-Drug Resistant Organisms: None Reported Past Surgical History: Bariatric Surgery, Section, Orthopedic Surgery, Tonsillectomy Additional Past Surgical History / Comment(s): lump removed from neck Past Anesthesia/Blood Transfusion Reactions: No Reported Reaction Past Psychological History: Depression Smoking Status: Current every day smoker Past Alcohol Use History: None Reported Past Drug Use History: None Reported - Past Family History Mother Family Medical History: No Reported History Father Family Medical History: Coronary Artery Disease (CAD) Additional Family Medical History / Comment(s): triple bypass, esophageal cancer Medications and Allergies Home Medications Medication Instructions Recorded Confirmed Type Cholecalciferol [Vitamin D3 (25 25 mcg PO DAILY 02/18/23 03/16/23 History Mcg = 1000 Iu)] Cyanocobalamin (Vitamin B-12) 1,000 mcg PO DAILY 02/18/23 03/16/23 History [Vitamin B-12] Pantoprazole [Protonix] 40 mg PO DAILY 02/18/23 03/16/23 History Aspirin 81 mg PO DAILY #90 tab 02/21/23 03/16/23 Rx Atorvastatin [Lipitor] 40 mg PO HS #90 tab 02/21/23 03/16/23 Rx Clopidogrel [Plavix] 75 mg PO DAILY #90 tab 02/21/23 03/16/23 Rx Isosorbide Mononitrate ER [Imdur] 30 mg PO DAILY #90 tab 02/21/23 03/16/23 Rx Metoprolol Succinate (ER) [Toprol 25 mg PO DAILY 03/16/23 03/16/23 History Xl] Nitroglycerin Sl Tabs [Nitrostat] 0.4 mg SL Q5M PRN 03/16/23 03/16/23 History Valsartan [Diovan] 40 mg PO DAILY 03/16/23 03/16/23 History Allergies Allergy/AdvReac Type Severity Reaction Status Date / Time Sulfa (Sulfonamide Allergy Rash/Hives Verified 03/16/23 11:46 Antibiotics) all over body sulfamethoxazole Allergy Rash/Hives Verified 03/16/23 11:46 [From Bactrim] all over body trimethoprim [From Bactrim] Allergy Rash/Hives Verified 03/16/23 11:46 all over body Surgical - Exam Vital Signs Temp Pulse Resp BP Pulse Ox 98.6 F 52 L 16 134/67 97 03/16/23 10:15 03/16/23 10:15 03/16/23 10:15 03/16/23 10:15 03/16/23 10:15 - General well developed, well nourished, no distress - Eyes PERRL - ENT normal pinna - Neck no masses - Respiratory normal expansion - Cardiovascular Rhythm: regular - Abdomen Mild right upper quadrant pain Abdomen: soft Results - Labs 03/17/23 04:14 03/18/23 05:34 Abnormal Lab Results - Last 24 Hours (Table) 03/18/23 Range/Units 05:34 AST 69 H (14-36) U/L ALT 185 H (4-34) U/L Alkaline Phosphatase 146 H (38-126) U/L Total Protein 6.0 L (6.3-8.2) g/dL Diabetes panel 03/18/23 Range/Units 05:34 Sodium 139 (137-145) mmol/L Potassium 4.4 (3.5-5.1) mmol/L Chloride 106 (98-107) mmol/L Carbon Dioxide 27 (22-30) mmol/L BUN 16 (7-17) mg/dL Creatinine 0.84 (0.52-1.04) mg/dL Glucose 88 (74-99) mg/dL Calcium 8.9 (8.4-10.2) mg/dL AST 69 H (14-36) U/L ALT 185 H (4-34) U/L Alkaline Phosphatase 146 H (38-126) U/L Total Protein 6.0 L (6.3-8.2) g/dL Albumin 3.7 (3.5-5.0) g/dL Calcium panel 03/18/23 Range/Units 05:34 Calcium 8.9 (8.4-10.2) mg/dL Albumin 3.7 (3.5-5.0) g/dL Pituitary panel 03/18/23 Range/Units 05:34 Sodium 139 (137-145) mmol/L Potassium 4.4 (3.5-5.1) mmol/L Chloride 106 (98-107) mmol/L Carbon Dioxide 27 (22-30) mmol/L BUN 16 (7-17) mg/dL Creatinine 0.84 (0.52-1.04) mg/dL Glucose 88 (74-99) mg/dL Calcium 8.9 (8.4-10.2) mg/dL Adrenal panel 03/18/23 Range/Units 05:34 Sodium 139 (137-145) mmol/L Potassium 4.4 (3.5-5.1) mmol/L Chloride 106 (98-107) mmol/L Carbon Dioxide 27 (22-30) mmol/L BUN 16 (7-17) mg/dL Creatinine 0.84 (0.52-1.04) mg/dL Glucose 88 (74-99) mg/dL Calcium 8.9 (8.4-10.2) mg/dL Total Bilirubin 0.6 (0.2-1.3) mg/dL AST 69 H (14-36) U/L ALT 185 H (4-34) U/L Alkaline Phosphatase 146 H (38-126) U/L Total Protein 6.0 L (6.3-8.2) g/dL Albumin 3.7 (3.5-5.0) g/dL - Imaging US - abdomen: report reviewed (Cholelithiasis) Assessment and Plan Assessment: Choledocholithiasis. Patient was scheduled for laparoscopic cholecystectomy.
--- NOTE | 2023-03-18 12:24 | P.PN ---
Subjective Progress Note Date: 03/18/23 Hospital Course: 62-year-old female with history of hypertension, dyslipidemia, CAD presenting with chest pain. In the ED, temperature was 98.6, pulse 52, respiratory 16, blood pressure 130/67, saturating at 97% on room air. Troponin negative 2. Cardiology consulted. Patient admitted for observation due to chest pain. ACS ruled out. Abdominal ultrasound shows extensive cholelithiasis. Surgery was consulted. Pending cholecystectomy likely Sunday. Subjective: Patient seen and examined at bedside. Currently asymptomatic. Pertinent positives and negatives as discussed above, a complete review of systems was performed and all other systems are negative. Vitals Signs Reviewed. General: nontoxic, no distress, appears at stated age, morbidly obese Derm: warm, dry Head: atraumatic, normocephalic, symmetric Eyes: EOMI, no lid lag, anicteric sclera Mouth: no lip lesion, mucus membranes moist Cardiovascular: S1S2 reg, no murmur Lungs: CTA bilateral, no rhonchi, no rales , no accessory muscle use Abdominal: soft, nontender to palpation, no guarding, no appreciable organomega ly Ext: no gross muscle atrophy, no edema, no contractures Neuro: CN II-XI grossly intact, no focal neuro deficits Psych: Alert, oriented, appropriate affect Data Reviewed Today: Pertinent Labs: Creatinine 0.84, AST 69, ALT 185, ALP 146 Imaging: No new imaging Assessment and Plan: Symptomatic cholelithiasis Transaminitis, resolving History of CAD Hypertension Dyslipidemia GERD Nicotine dependence -Surgery note reviewed, pending cholecystectomy -Cardiology following, consider holding antiplatelet therapy prior to surgical procedure to minimize bleeding risk -Continue aspirin 81 mg, atorvastatin 40 mg, Plavix 75 mg, isosorbide mononitrate 30 mg, metoprolol 25 mg, on valsartan 40 mg daily -Continue pantoprazole 40 mg -Patient counseled regarding smoking cessation -Hold dual antiplatelet and Lovenox tomorrow DVT ppx: Lovenox Code status: Full code Anticipated discharge place: Pending clinical course Anticipated discharge time: Pending clinical course Objective - Vital Signs Vital signs: Vital Signs Temp 97.7 F 03/18/23 07:00 Pulse 55 L 03/18/23 07:00 Resp 20 03/18/23 07:00 BP 129/60 03/18/23 07:00 Pulse Ox 97 03/18/23 07:00 FiO2 Intake & Output 03/17/23 03/18/23 03/18/23 18:59 06:59 18:59 Other: Voiding Method Toilet Toilet Toilet # Voids 2 2 - Labs CBC & Chem 7: 03/17/23 04:14 03/18/23 05:34 Labs: Abnormal Lab Results - Last 24 Hours (Table) 03/18/23 Range/Units 05:34 AST 69 H (14-36) U/L ALT 185 H (4-34) U/L Alkaline Phosphatase 146 H (38-126) U/L Total Protein 6.0 L (6.3-8.2) g/dL
[2023-03-18] MEDS ORDERED: ALPRAZolam 0.5 MG TAB PO PRN (19:17)
[2023-03-18] MEDS: ATORVASTATIN 40 MG TAB PO SCH (20:10)
[2023-03-19] MEDS: HYDROcodone/APAP 5-325MG 1 EACH TAB PO PRN ×3 (00:05→15:02)
[2023-03-19] MEDS: ASPIRIN 81 MG PO SCH (08:19)
[2023-03-19] MEDS: CLOPIDOGREL 75 MG TAB PO SCH (08:20)
[2023-03-19] MEDS: ENOXAPARIN 40 MG/0.4 ML SYRINGE SQ SCH (08:20)
[2023-03-19] MEDS: PANTOPRAZOLE 40 MG TABLET PO SCH (08:22)
[2023-03-19] MEDS: VALSARTAN 40 MG TAB PO SCH (08:22)
[2023-03-19] MEDS: ISOSORBIDE MONONITRATE ER 30 MG TAB.ER.24H PO SCH (08:22)
[2023-03-19] MEDS: METOPROLOL SUCCINATE (ER) 25 MG TAB.ER.24H PO SCH (08:28)
--- NOTE | 2023-03-19 09:06 | P.PN ---
Subjective Progress Note Date: 03/19/23 The patient is a 62-year-old female who is currently admitted to the hospital with chest discomfort. The patient does have a history of coronary artery disease with most recent cardiac catheterization in February 2023 revealing chronically occluded OM 2, moderate disease in the proximal RCA and mild disease in the mid LAD. EKG has shown no acute changes and troponins have been negative. Echo shows preserved LV function. Elevated liver enzymes prompted an ultrasound of the abdomen revealing extensive cholelithiasis with positive Villegas sign. At the time of my examination the patient denies any current chest discomfort. She states she does have intermittent episodes of nausea and some mild epig astric discomfort. No shortness of breath. 03/19 Telemetry is sinus rhythm and through the night was in the high 40s. Patient is asymptomatic. Blood pressure 137/75, pulse ox 100% on room air. No complaints of chest pain. GENERAL: Well-appearing, well-nourished and in no acute distress. NECK: Supple without JVD or thyromegaly. LUNGS: Breath sounds clear to auscultation bilaterally. Respiration equal and unlabored. No wheezes, rales or rhonchi. HEART: Regular rate and rhythm without murmurs, rubs or gallops. S1 and S2 heard. EXTREMITIES: Normal range of motion, no edema. No clubbing or cyanosis. Peripheral pulses intact and strong. TELEMETRY: Sinus mechanism IMPRESSION: Chest discomfort History of coronary artery disease Cholelithiasis Transaminitis Dyslipidemia Obesity, BMI 37 PLAN: Continue home medication regimen Patient may proceed with surgical intervention if and when necessary Antiplatelet therapy will need to be held 5 days prior No further recommendations from the cardiac standpoint Nurse practitioner note has been reviewed, I agree with the documented findings and plan of care. Patient was seen and examined. Objective - Vital Signs Vital signs: Vital Signs Temp 98.0 F 03/19/23 07:10 Pulse 46 L 03/19/23 07:10 Resp 16 03/19/23 07:10 BP 137/75 03/19/23 07:10 Pulse Ox 100 03/19/23 07:10 FiO2 Intake & Output 03/18/23 03/19/23 03/19/23 18:59 06:59 18:59 Intake Total 1000 Balance 1000 Intake: Oral 1000 Other: Voiding Method Toilet Toilet # Voids 2 2 - Labs CBC & Chem 7: 03/17/23 04:14 03/18/23 05:34
[2023-03-19 12:43] LABS: HCT 40.1 % (34.0-46.0); HGB 13.6 gm/dL (11.4-16.0); MCH 32.2 pg (25.0-35.0); MCHC 33.8 g/dL (31.0-37.0); MCV 95.3 fL (80.0-100.0); Mean Platelet Volume 8.1; Platelet Count 171 k/uL (150-450); RBC 4.21 m/uL (3.80-5.40); RDW 13.6 % (11.5-15.5); WBC 5.4 k/uL (3.8-10.6)
[2023-03-19 13:25] LABS: ALT 116 U/L (4-34); AST 38 U/L (14-36); African American GFR (CKD) >90 (>60 ml/min/1.73 sqM); Albumin 3.5 g/dL (3.5-5.0); Albumin/Globulin Ratio 1.4; Alkaline Phosphatase 126 U/L (38-126); Anion Gap 9 mmol/L; Blood Urea Nitrogen 13 mg/dL (7-17); Carbon Dioxide 25 mmol/L (22-30); Chloride 107 mmol/L (98-107); Globulin 2.5 g/dL; Glucose 91 mg/dL (74-99); Non-African American GFR(CKD) 87 (>60 ml/min/1.73 sqM); Potassium 4.5 mmol/L (3.5-5.1); Sodium 141 mmol/L (137-145); Total Bilirubin 0.5 mg/dL (0.2-1.3)
--- NOTE | 2023-03-19 15:16 | P.PN ---
Subjective Progress Note Date: 03/19/23 CHIEF COMPLAINT: Cholelithiasis HISTORY OF PRESENT ILLNESS: Patient does report right upper quadrant abdominal pain with eating. She is scheduled for a laparoscopic cholecystectomy today Dr. robison. Sitting in chair comfortably. Last dose of Plavix was yesterday morning. Surgeon has been informed. Afebrile. elevated LFTs trending down. Labs for today pending PHYSICAL EXAM: VITAL SIGNS: Reviewed. GENERAL: Well-developed in no acute distress. ABDOMEN: Soft. Nondistended. NEUROLOGIC: Alert and oriented. Cranial nerves II through XII grossly intact. ASSESSMENT: 1. Cholelithiasis 2. Right upper quadrant abdominal pain 3. Elevated LFTs PLAN: -Patient scheduled for laparoscopic cholecystectomy today with Dr. robison -Hold Plavix Physician Associate Material Handler note has been reviewed by physician. Signing provider agrees with the documented findings, assessment, and plan of care. Objective - Vital Signs Vital signs: Vital Signs Temp 98.0 F 03/19/23 07:10 Pulse 46 L 03/19/23 07:10 Resp 16 03/19/23 07:10 BP 137/75 03/19/23 07:10 Pulse Ox 100 03/19/23 07:10 FiO2 Intake & Output 03/18/23 03/19/23 03/19/23 18:59 06:59 18:59 Intake Total 1000 Balance 1000 Intake: Oral 1000 Other: Voiding Method Toilet Toilet Toilet # Voids 2 2 - Labs CBC & Chem 7: 03/17/23 04:14 03/18/23 05:34
--- NOTE | 2023-03-19 16:25 | P.PN ---
Subjective Progress Note Date: 03/19/23 Hospital course: Patient is a very pleasant 62-year-old female with history of hypertension, dyslipidemia, CAD presenting with chest pain. In the ED, temperature was 98.6, pulse 52, respiratory 16, blood pressure 130/67, saturating at 97% on room air. Troponin negative 2. Cardiology consulted. Patient admitted for observation due to chest pain. ACS ruled out. Abdominal ultrasound shows extensive cholelithiasis. Surgery was consulted. Pending cholecystectomy later today. Physical exam: Vital signs reviewed and stable. General: Nontoxic, no distress and appears stated age. Derm: Skin warm and dry, normal coloration for ethnicity. Head: Atraumatic, normocephalic and symmetric. Eyes: EOMs intact, no lid lag, and anicteric sclera Mouth: no lip lesions, mucus membranes moist Cardiovascular: regular rate and rhythm with normal S1S2, no murmur, positive posterior tibial pulses bilaterally, and cap refill < 2 seconds. Lungs: Respirations even, regular, and unlabored on room air. Lungs CTA bilaterally, no rhonchi, no rales, no wheezing, and no accessory muscle usage. Abdominal: soft, tenderness reported to palpation in right upper and epigastric region. no guarding, no appreciable organomegaly Ext: ROM intact. No gross muscle atrophy, no edema, no contractures Neuro: Speech clear, face symmetrical and CN II-XII grossly intact with no noted focal neuro deficits Psych: Alert and oriented to person, place, time, and situation. Appropriate and pleasant affect. Assessment and Plan of Care: Symptomatic cholelithiasis Transaminitis, improving History of CAD Hypertension Dyslipidemia GERD Nicotine dependence -Gen. surgery following, discussed plan of care with general surgery PA and plan is to take patient for laparoscopic cholecystectomy later today with Dr. John. -Cardiology following, Plavix held pending completion of surgical procedure to minimize bleeding risk -Continue aspirin 81 mg, atorvastatin 40 mg, isosorbide mononitrate 30 mg, m etoprolol 25 mg, and valsartan 40 mg daily -ContinueGI prophylaxis with pantoprazole 40 mg -Recommend smoking cessation -Continue to hold Plavix and Lovenox pending completion of surgical procedure a nd okayed by general surgery team to resume. Data and imaging reviewed: Vital signs reviewed. Blood pressure 137/75, heart rate 46, respiratory rate 16, temp 98.0F, SpO2 100% on room air. Labs completed and reviewed. CBC unremarkable with WBC count of 5.4, hemoglobin 13.6, and platelet count of 171. BMP also unremarkable with sodium 141, potassium 4.5, chloride 107, bicarb 25, anion gap of 9, and stable renal function with BUN of 13, creatinine 0.73, and GFR of 91. Liver profile showing significant improvement in transaminitis with AST of 38, ALT 116, and alkaline phosphatase of 126. DVT ppx: Lovenox Code status: Full code Anticipated discharge place: Pending clinical course Anticipated discharge time: Pending clinical course Patient was seen independently by Nurse Pracitioner. This document was prepared using [email or web address] dictation software. Please allow for errors in coke still cleaner, while rare they do occur. Objective - Vital Signs Vital signs: Vital Signs Temp 98.0 F 03/19/23 07:10 Pulse 46 L 03/19/23 07:10 Resp 16 03/19/23 07:10 BP 137/75 03/19/23 07:10 Pulse Ox 100 03/19/23 07:10 FiO2 Intake & Output 03/18/23 03/19/23 03/19/23 18:59 06:59 18:59 Intake Total 1000 Balance 1000 Intake: Oral 1000 Other: Voiding Method Toilet Toilet # Voids 2 2 - Labs CBC & Chem 7: 03/19/23 12:23 03/19/23 12:23
[2023-03-19] MEDS ORDERED: LACTATED RINGERS 1,000 ML IV ONE ×2 (17:09→18:47)
[2023-03-19] MEDS ORDERED: ONDANSETRON 4 MG/2 ML VIAL IVP ONE (17:17)
[2023-03-19] MEDS ORDERED: MIDAZOLAM 2 MG/2 ML VIAL IVP ONE (17:17)
[2023-03-19] MEDS ORDERED: MIDAZOLAM 2 MG/2 ML VIAL ONE (18:29)
[2023-03-19] MEDS ORDERED: HYDROmorphone (PF) 1 MG/ML ONE (18:29)
[2023-03-19] MEDS ORDERED: SUCCINYLCHOLINE CHLORIDE 200 MG/10 ML VIAL IV ONE (18:29)
[2023-03-19] MEDS ORDERED: GLYCOPYRROLATE 0.2 MG/ML 2 ML VIAL ONE (18:29)
[2023-03-19] MEDS ORDERED: fentaNYL (PF) 50 MCG/ML 2 ML AMP ONE (18:29)
[2023-03-19] MEDS ORDERED: KETOROLAC 15 MG/ML 1 ML VIAL ONE (18:29)
[2023-03-19] MEDS ORDERED: PROPOFOL 10 MG/ML 20 ML VIAL IV ONE (18:29)
[2023-03-19] MEDS ORDERED: LIDOCAINE 4% LTA KIT (4 ML) TOPICAL ONE (18:29)
[2023-03-19] MEDS ORDERED: LIDOCAINE 1% INJ 10MG/ML (20 ML MDV) ONE (18:29)
[2023-03-19] MEDS ORDERED: ROCURONIUM 10 MG/ML (5 ML VIAL) IV ONE (18:29)
[2023-03-19] MEDS ORDERED: LABETALOL 5 MG/ML VIAL MDV ONE (18:29)
[2023-03-19] MEDS ORDERED: NEOSTIGMINE 1 MG/ML 10 ML VIAL ONE (18:29)
[2023-03-19] MEDS ORDERED: SODIUM CHLORIDE 0.9% 50 ML with ceFAZolin 2,000 MG IV ONE ×2 (18:47)
[2023-03-19] MEDS ORDERED: BUPIVACAINE (PF) 0.25% 30 ML VIAL SQ ONE (18:52)
[2023-03-19] MEDS ORDERED: HYDROcodone/APAP 7.5-325MG 1 EACH TAB PO PRN (19:18)
[2023-03-19] MEDS ORDERED: ONDANSETRON 4 MG/2 ML VIAL IVP PRN (19:18)
--- NOTE | 2023-03-19 19:18 | P.OP ---
Date of Procedure: 03/19/23 Preoperative Diagnosis: Cholelithiasis Cholecystitis Postoperative Diagnosis: Same Procedure(s) Performed: Laparoscopic cholecystectomy Anesthesia: BOOGIE Surgeon: Benny Jhon Estimated Blood Loss (ml): 25 Pathology: other (Gallbladder) Condition: stable Disposition: PACU Description of Procedure: The patient was placed on the operating table. The patient received a general endotracheal tube anesthesia. The patients abdomen was prepped and draped in the usual sterile fashion. Through an infraumbilical stab incision, the fascia of the anterior abdominal wall was grasped with a pair of Kochers and then the Veress needle was placed in the peritoneal cavity. Position of the Veress needle was confirmed with positive drop test. The abdomen was then insufflated. After adequate insufflation, the 10 mm trocar was placed in the peritoneal cavity. Following this the laparoscope was placed in the peritoneal cavity. The patient was placed in the head-up, right side up position and then a 5 mm trocar was placed in the right lateral and right subcostal p osition under direct visualization. A 8 mm trocar was placed in the epigastric position. The gallbladder was grasped in the fundus and infundibulum. Traction on the gallbladder was placed in the lateral and the cephalad positions. The triangle of Calot was visualized.. The cystic duct was bluntly dissected until the union of the cystic duct and common bile duct was seen. A critical view of safety was achieved. The cystic duct was then divided and sealed with the Harmonic scissors. A PDS Endoloop was then placed throughout the cystic duct stump. The cystic artery divided and sealed with the Harmonic scissors. The gallbladder was then removed from the liver bed using Harmonic scissors. The gallbladder was then extracted through the epigastric port site. Operative field was checked for any bleeding spots and Harmonic scissors was used to coagulate the liver bed. The abdomen was irrigated. The trocars were removed. The skin was closed using interrupted 3-0 Vicryl suture. Dermabond dressing were applied. The patient tolerated the procedure well.
[2023-03-19] MEDS ORDERED: ALBUTEROL NEBULIZED 2.5 MG/3 ML INHALATION ONE (19:40)
[2023-03-19] MEDS ORDERED: HYDROmorphone 0.5 MG/0.5 ML SYRINGE IVP ONE (19:57)
[2023-03-19] MEDS: HYDROmorphone 1 MG/ML 1 ML SYRINGE IVP PRN (21:43)
[2023-03-19] MEDS: ATORVASTATIN 40 MG TAB PO SCH (21:44)
[2023-03-20] MEDS: HYDROmorphone 1 MG/ML 1 ML SYRINGE IVP PRN ×3 (01:15→08:29)
[2023-03-20 07:40] VITALS: BP 144/73; PULSE 76; RESP 16; TEMP 98
[2023-03-20] MEDS: VALSARTAN 40 MG TAB PO SCH (09:26)
[2023-03-20] MEDS: PANTOPRAZOLE 40 MG TABLET PO SCH (09:26)
[2023-03-20] MEDS: METOPROLOL SUCCINATE (ER) 25 MG TAB.ER.24H PO SCH (09:26)
[2023-03-20] MEDS: ASPIRIN 81 MG PO SCH (09:26)
[2023-03-20] MEDS: ISOSORBIDE MONONITRATE ER 30 MG TAB.ER.24H PO SCH (09:26)
[2023-03-20] MEDS: ENOXAPARIN 40 MG/0.4 ML SYRINGE SQ SCH (09:26)
[2023-03-20] MEDS: ONDANSETRON 4 MG/2 ML VIAL IVP PRN (09:27)
[2023-03-20 10:12] LABS: HCT 38.5 % (34.0-46.0); HGB 12.8 gm/dL (11.4-16.0); MCH 31.6 pg (25.0-35.0); MCHC 33.2 g/dL (31.0-37.0); Mean Platelet Volume 8.7; Platelet Count 157 k/uL (150-450); RBC 4.05 m/uL (3.80-5.40); RDW 13.8 % (11.5-15.5); WBC 8.3 k/uL (3.8-10.6)
[2023-03-20 10:38] LABS: ALT 94 U/L (4-34); AST 35 U/L (14-36); African American GFR (CKD) >90 (>60 ml/min/1.73 sqM); Albumin 3.7 g/dL (3.5-5.0); Albumin/Globulin Ratio 1.6; Alkaline Phosphatase 122 U/L (38-126); Anion Gap 7 mmol/L; Blood Urea Nitrogen 12 mg/dL (7-17); Calcium 8.8 mg/dL (8.4-10.2); Carbon Dioxide 31 mmol/L (22-30); Chloride 102 mmol/L (98-107); Globulin 2.3 g/dL; Glucose 102 mg/dL (74-99); Non-African American GFR(CKD) 86 (>60 ml/min/1.73 sqM); Potassium 4.8 mmol/L (3.5-5.1); Sodium 140 mmol/L (137-145); Total Bilirubin 0.3 mg/dL (0.2-1.3)
--- NOTE | 2023-03-20 11:42 | P.PN ---
Subjective Progress Note Date: 03/20/23 CHIEF COMPLAINT: Cholelithiasis HISTORY OF PRESENT ILLNESS: Postop day #1 status post laparoscopic cholec ystectomy. Patient states her pain is controlled. She is having flatus. She did have some nausea earlier, now resolved. She reports mostly eating candy last night. She feels ready for discharge. No further nausea. No vomiting. She is having flatus. She has been up and ambulating. She's afebrile. WBC 8.3 Hgb 12.8 platelets 157 seconds 140 potassium is 4.8 creatinine 0.74 total bilirubin 0.3 AST 35 ALT 94 alk phos 122. LFTs improving PHYSICAL EXAM: VITAL SIGNS: Reviewed. GENERAL: Well-developed in no acute distress. ABDOMEN: Soft. Nondistended. Incision sites clean dry and intact NEUROLOGIC: Alert and oriented. Cranial nerves II through XII grossly intact. ASSESSMENT: 1. Cholelithiasis and cholecystitis status post laparoscopic cholecystectomy 2. Elevated LFTs trending downwards PLAN: -Patient can be discharged from surgical standpoint -Okay to resume Plavix tomorrow Physician Metal Control Worker note has been reviewed by physician. Signing provider agrees with the documented findings, assessment, and plan of care. Objective - Vital Signs Vital signs: Vital Signs Temp 98.0 F 03/20/23 07:32 Pulse 76 03/20/23 08:00 Resp 16 03/20/23 08:00 BP 144/73 03/20/23 07:32 Pulse Ox 99 03/20/23 07:32 FiO2 Intake & Output 03/19/23 03/20/23 03/20/23 18:59 06:59 18:59 Intake Total 350 100 Output Total 5 Balance 350 95 Intake: IV 350 100 Output: Estimated Blood Loss 5 Other: Voiding Method Toilet Toilet Toilet # Voids 3 2 - Labs CBC & Chem 7: 03/20/23 09:43 03/20/23 09:43 Labs: Abnormal Lab Results - Last 24 Hours (Table) 03/19/23 03/20/23 Range/Units 12:23 09:43 Carbon Dioxide 31 H (22-30) mmol/L Glucose 102 H (74-99) mg/dL AST 38 H (14-36) U/L ALT 116 H 94 H (4-34) U/L Total Protein 6.0 L 6.0 L (6.3-8.2) g/dL
--- NOTE | 2023-03-20 11:48 | P.DS ---
Providers Date of admission: 03/19/23 08:25 Expected date of discharge: 03/20/23 Attending physician: Misael Veras MD Consults: 03/16/23 10:58 Consult Physician Urgent Consulting Provider: Trevor Arambula Consult Reason/Comments: chest pain Do you want consulting provider notified?: Yes 03/17/23 08:19 Consult Physician Routine Consulting Provider: Benny John Consult Reason/Comments: cholecystitis? Do you want consulting provider notified?: Yes Primary care physician: JEFF Rothman Hospital Course: Discharge Diagnosis: Symptomatic cholelithiasis, status post laparoscopic cholecystectomy on 03/19/23. Transaminitis, improved History of CAD Hypertension Dyslipidemia GERD Nicotine dependence Hospital Course: Patient is a very pleasant 62-year-old female with history of hypertension, dyslipidemia, CAD presenting with chest pain. In the ED, temperature was 98.6, pulse 52, respiratory 16, blood pressure 130/67, saturating at 97% on room air. Troponin negative 2. Cardiology consulted. Patient admitted for observation due to chest pain. ACS ruled out. Abdominal ultrasound shows extensive cholelithiasis. Surgery was consulted. Patient underwent 3 night hospitalization for close monitoring of her symptomatic cholelithiasis and transaminitis. Transaminitis slowly improving. Patient underwent laparoscopic cholecystectomy on 03/19/[address] John. Patient is currently postoperative day one and appears to be doing well. She is tolerating oral intake without any episodes of nausea or vomiting. Morning labs reviewed. CBC unremarkable. BMP showing mild hypercarbia with bicarb is 31. Glucose 102. Liver enzymes showing near resolution of previous transaminitis with AST of 35, ALT of 94, an alkaline phosphatase of 122 from initial AST of 249, ALT of 304, and alkaline phosphatase of 185. Vital signs reviewed and stable. Blood pressure 144/73, heart rate 76, respiratory rate 16, temp 98.0F, SpO2 of 99% on room air. Patient has been cleared from general surgery's perspective for discharge recommending outpatient follow-up in our office in one week. Medically, patient is stable for discharge at this time. Discharge instructions provided patient to follow up outpatient with PCP in 1-2 days, general surgery in one week, and cardiology in 1-2 weeks. Physical exam: Vital signs reviewed and stable. General: Nontoxic, no distress and appears stated age. Derm: Skin warm and dry, normal coloration for ethnicity. Head: Atraumatic, normocephalic and symmetric. Eyes: EOMs intact, no lid lag, and anicteric sclera Mouth: no lip lesions, mucus membranes moist Cardiovascular: regular rate and rhythm with normal S1S2, no murmur, positive posterior tibial pulses bilaterally, and cap refill < 2 seconds. Lungs: Respirations even, regular, and unlabored on room air. Lungs CTA bilaterally, no rhonchi, no rales, no wheezing, and no accessory muscle usage. Abdominal: soft, no guarding, no appreciable organomegaly. Laparoscopic incisions intact. Ext: ROM intact. No gross muscle atrophy, no edema, no contractures Neuro: Speech clear, face symmetrical and CN II-XII grossly intact with no noted focal neuro deficits Psych: Alert and oriented to person, place, time, and situation. Appropriate and pleasant affect. A total of 35 minutes of time were spent preparing this complex discharge summary. Pt was discharged on 03/20/23 11:46 AM Patient was seen independently by Nurse Practitioner. This document was prepared using [employer] dictation software. Please allow for errors in registered appraiser while rare they do occur. Patient Condition at Discharge: Stable Plan - Discharge Summary New Discharge Prescriptions: New oxyCODONE HCL [OxyIR] 5 mg PO Q6H PRN 3 Days #12 tab PRN Reason: Pain Acetaminophen Tab [Tylenol Tab] 650 mg PO Q4H PRN #30 tablet PRN Reason: Pain Continue Pantoprazole [Protonix] 40 mg PO DAILY Cholecalciferol [Vitamin D3 (25 Mcg = 1000 Iu)] 25 mcg PO DAILY Metoprolol Succinate (ER) [Toprol XL] 25 mg PO DAILY Valsartan [Diovan] 40 mg PO DAILY Nitroglycerin Sl Tabs [Nitrostat] 0.4 mg SL Q5M PRN PRN Reason: Chest Pain Cyanocobalamin (Vitamin B-12) [Vitamin B-12] 1,000 mcg PO DAILY Aspirin 81 mg PO DAILY #90 tab Isosorbide Mononitrate ER [Imdur] 30 mg PO DAILY #90 tab Atorvastatin [Lipitor] 40 mg PO HS #90 tab Clopidogrel [Plavix] 75 mg PO DAILY #90 tab Discharge Medication List Cholecalciferol [Vitamin D3 (25 Mcg = 1000 Iu)] 25 mcg PO DAILY 02/18/23 [History] Cyanocobalamin (Vitamin B-12) [Vitamin B-12] 1,000 mcg PO DAILY 02/18/23 [History] Pantoprazole [Protonix] 40 mg PO DAILY 02/18/23 [History] Aspirin 81 mg PO DAILY #90 tab 02/21/23 [Rx] Atorvastatin [Lipitor] 40 mg PO HS #90 tab 02/21/23 [Rx] Clopidogrel [Plavix] 75 mg PO DAILY #90 tab 02/21/23 [Rx] Isosorbide Mononitrate ER [Imdur] 30 mg PO DAILY #90 tab 02/21/23 [Rx] Metoprolol Succinate (ER) [Toprol XL] 25 mg PO DAILY 03/16/23 [History] Nitroglycerin Sl Tabs [Nitrostat] 0.4 mg SL Q5M PRN 03/16/23 [History] Valsartan [Diovan] 40 mg PO DAILY 03/16/23 [History] Acetaminophen Tab [Tylenol Tab] 650 mg PO Q4H PRN #30 tablet 03/20/23 [Rx] oxyCODONE HCL [OxyIR] 5 mg PO Q6H PRN 3 Days #12 tab 03/20/23 [Rx] Follow up Appointment(s)/Referral(s): Celso Song MD [STAFF PHYSICIAN] - 1 Week (Dr Dara Metz office will call call you to schedule an appointment ) Jeremiah Xie PAC [Primary Care Provider] - 1-2 days Benny John MD [STAFF PHYSICIAN] - 03/29/23 3:30 pm Patient Instructions/Handouts: Laparoscopic Cholecystectomy (DC) Activity/Diet/Wound Care/Special Instructions: Activity: As tolerated. Take breaks as needed. Diet: Heart healthy and carb consistent diet. Avoid salts, or foods with hidden salts such as canned or boxed foods and frozen dinners. Extra salt makes your heart work harder and traps the fluid in your body for longer. Special Instructions: Take all of your medications as directed and remember to keep all of your doctor's appointments and follow-up as needed. You have been cleared by general surgery to resume your Plavix starting this evening. Thank you for allowing us to participate in your care, it was truly a pleasure having you for our patient!!! Discharge Disposition: HOME SELF-CARE
--- NOTE | 2023-03-20 14:45 | P.PN ---
Subjective Progress Note Date: 03/20/23 The patient is a 62-year-old female who is currently admitted to the hospital with chest discomfort. The patient does have a history of coronary artery disease with most recent cardiac catheterization in February 2023 revealing chronically occluded OM 2, moderate disease in the proximal RCA and mild disease in the mid LAD. EKG has shown no acute changes and troponins have been negative. Echo shows preserved LV function. Elevated liver enzymes prompted an ultrasound of the abdomen revealing extensive cholelithiasis with positive Villegas sign. At the time of my examination the patient denies any current chest discomfort. She states she does have intermittent episodes of nausea and some mild epig astric discomfort. No shortness of breath. 03/19 Telemetry is sinus rhythm and through the night was in the high 40s. Patient is asymptomatic. Blood pressure 137/75, pulse ox 100% on room air. No complaints of chest pain. 03/20 Yesterday, patient underwent laparoscopic cholecystectomy. Patient denies any new concerns today. no chest pain, shortness of breath. Blood pressure 144/63, heart rate in the 70s and 80s. Hemoglobin 12.8. BUN 12 and creatinine 0.74. GENERAL: Well-appearing, well-nourished and in no acute distress. NECK: Supple without JVD or thyromegaly. LUNGS: Breath sounds clear to auscultation bilaterally. Respiration equal and unlabored. No wheezes, rales or rhonchi. HEART: Regular rate and rhythm without murmurs, rubs or gallops. S1 and S2 heard. EXTREMITIES: Normal range of motion, no edema. No clubbing or cyanosis. Peripheral pulses intact and strong. TELEMETRY: Sinus mechanism IMPRESSION: Chest discomfort History of coronary artery disease Cholelithiasis status post laparoscopic cholecystectomy Transaminitis Dyslipidemia Obesity, BMI 37 PLAN: Continue home medication regimen Resume Plavix Patient will follow-up with her purchasing and claims supervisor in [place]. Nurse practitioner note has been reviewed, I agree with the documented findings and plan of care. Patient was seen and examined. Objective - Vital Signs Vital signs: Vital Signs Temp 98.0 F 03/20/23 07:32 Pulse 76 03/20/23 08:00 Resp 16 03/20/23 08:00 BP 144/73 03/20/23 07:32 Pulse Ox 99 03/20/23 07:32 FiO2 Intake & Output 03/19/23 03/20/23 03/20/23 18:59 06:59 18:59 Intake Total 350 100 Output Total 5 Balance 350 95 Intake: IV 350 100 Output: Estimated Blood Loss 5 Other: Voiding Method Toilet Toilet Toilet # Voids 3 2 - Labs CBC & Chem 7: 03/20/23 09:43 03/20/23 09:43 Labs: Abnormal Lab Results - Last 24 Hours (Table) 03/20/23 Range/Units 09:43 Carbon Dioxide 31 H (22-30) mmol/L Glucose 102 H (74-99) mg/dL ALT 94 H (4-34) U/L Total Protein 6.0 L (6.3-8.2) g/dL
== END 2023-03-20 14:13 | disposition home or self-care (01) | DRG 418 ==
LOC: EC 10:09 → 6NMEDSUR 11:43 → OBSVTOIN 03-19 08:25
PROVIDERS: ADMIT Student in an Organized Health Care Education/Training Program; ATTEND Student in an Organized Health Care Education/Training Program
PROC: 0FT44ZZ Resection of Gallbladder, Percutaneous Endoscopic Approach (ICD-10-PCS; principal; 2023-03-19 08:40)
DX: K80.64 Calculus of gallbladder and bile duct with chronic cholecystitis without obstruction (principal); I25.110 Atherosclerotic heart disease of native coronary artery with unstable angina pectoris; E66.01 Morbid (severe) obesity due to excess calories; E78.5 Hyperlipidemia, unspecified; I10 Essential (primary) hypertension; Z68.37 Body mass index [BMI] 37.0-37.9, adult; F32.A Depression, unspecified; I45.10 Unspecified right bundle-branch block; K21.9 Gastro-esophageal reflux disease without esophagitis; R74.01 Elevation of levels of liver transaminase levels; R00.1 Bradycardia, unspecified; F17.210 Nicotine dependence, cigarettes, uncomplicated; Z71.6 Tobacco abuse counseling; Z79.82 Long term (current) use of aspirin; Z79.02 Long term (current) use of antithrombotics/antiplatelets; Z79.899 Other long term (current) drug therapy; Z98.84 Bariatric surgery status; Z88.2 Allergy status to sulfonamides
CPT/HCPCS: 36415; 76705; 80053; 80061; 83735; 84484; 85025; 85027; 85610; 85730; 88304; 93308; 96365; 99285